=== PATIENT | female | born 1950 | race Caucasian/White ===

== ENCOUNTER 2018-05-14 16:17 | Emergency (ER) | payer MEDICARE, BC ==
[2018-05-14 16:44] VITALS: BP 143/74
[2018-05-14] MEDS ORDERED: Sodium Chloride 0.9% 500 ML IV ONE (16:47)
[2018-05-14] MEDS ORDERED: Meclizine 12.5 MG Tab PO ONE (16:50)
--- NOTE | 2018-05-14 16:50 | EDM.PDOC ---
ED HPI GENERAL MEDICAL PROBLEM - General Chief Complaint: Neurological Problem Stated Complaint: [facility] Time Seen by Provider: 05/14/18 16:29 Source of Information: Reports: Patient, EMS History Limitations: Reports: No Limitations - History of Present Illness INITIAL COMMENTS - FREE TEXT/NARRATIVE: 67-year-old female arrives via [facility] ambulance service for evaluation treatment of dizziness. Patient reports that she was working on her computer when she had sudden onset of dizziness. She reports feeling nauseated and vomited one time. She is also complaining of some pain to her left shoulder and the left side of her neck. Reports his pain as a 2 out of 10. Denies any chest pain or shortness of breath. Upon arrival in the ER patient is very shaky. The patient and her are not concerned by this. Reportedly she gets shaky when her protein levels are low. She frequently takes protein shakes or this. Primary care provider is Dr. Platt. Onset: Today, Sudden Left Shoulder Pain Score (Numeric/FACES): 2 - Related Data Allergies Allergy/AdvReac Type Severity Reaction Status Date / Time No Known Allergies Allergy Verified 06/04/14 10:55 Home Meds: Home Meds Acetaminophen/HYDROcodone [HYDROcodone-Acetaminophen 5-500] 1 tab PO ASDIRECTED PRN 06/04/14 [History] C0-Q-10 100 mg PO DAILY 06/04/14 [History] Lansoprazole [Prevacid] 1 tab PO DAILY 06/04/14 [History] Levothyroxine [Synthroid] 1 tab PO DAILY 06/04/14 [History] Losartan [Cozaar] 1 tab PO DAILY 06/04/14 [History] Nabumetone 500 mg PO BID 06/04/14 [History] Pravastatin [Pravachol] 1 tab PO DAILY 06/04/14 [History] amLODIPine [Norvasc] 1 tab PO DAILY 06/04/14 [History] Past Medical History Cardiovascular History: Reports: High Cholesterol, Hypertension Respiratory History: Reports: Asthma Gastrointestinal History: Reports: GERD Social & Family History - Tobacco Use Smoking Status *Q: Current Every Day Smoker Years of Tobacco use: 40 Packs/Tins Daily: 1 - Caffeine Use Caffeine Use: Reports: Tea - Recreational Drug Use Recreational Drug Use: No ED ROS GENERAL - Review of Systems Review Of Systems: See Below Constitutional: Reports: Weakness, Fatigue. Denies: Fever, Chills Respiratory: Denies: Shortness of Breath, Cough Cardiovascular: Denies: Chest Pain GI/Abdominal: Reports: Nausea, Vomiting. Denies: Abdominal Pain, Diarrhea, Hematochezia, Melena : Reports: No Symptoms Musculoskeletal: Reports: Neck Pain (left sided) Neurological: Reports: Dizziness, Tingling (chronic in the arms, no recent change). Denies: Headache, Numbness, Syncope ED EXAM, NEURO - Physical Exam Exam: See Below Exam Limited By: No Limitations General Appearance: Alert, WD/WN, No Apparent Distress, Thin Eye Exam: Bilateral Eye: EOMI, Normal Inspection Ears: Normal External Exam Nose: Normal Inspection Throat/Mouth: Normal Inspection, Normal Lips, Normal Voice, No Airway Compromise Head Exam: Atraumatic, Normocephalic Neck: Normal Inspection, Supple, Non-Tender, Full Range of Motion. No: Carotid Bruit Respiratory/Chest: No Respiratory Distress, Lungs Clear, Normal Breath Sounds Cardiovascular: Normal Peripheral Pulses, Regular Rate, Rhythm, No Murmur GI/Abdominal: Normal Bowel Sounds, Soft, Non-Tender Neurological: Alert, Normal Mood/Affect, Normal Dorsiflexion, CN II-XII Intact, Normal Plantar Flexion, Other (normal heel to gibson testing, normal finger to nose testing, physician coding specialist strength, dorsiflexion and plantarflexion are 5/5 bilaterally , no pronator drift, no lower extremity drift, no facial droop, no slurred speech) Psychiatric: Normal Affect, Normal Mood Skin Exam: Warm, Dry, Normal Color EKG INTERPRETATION EKG Date: 05/14/18 Time: 17:41 Rhythm: NSR Rate (Beats/Min): 73 [place]: Normal P-Wave: Present QRS: Normal ST-T: Normal QT: Normal EKG Interpretation Comments: NSR at 73 bpm. No acute ischemic changes . Reviewed by myself and Dr. Bradley. Course - Vital Signs Last Recorded V/S: Last Vital Signs Temp 97.8 F 05/14/18 16:42 Pulse 78 05/14/18 16:42 Resp 20 05/14/18 16:42 BP 143/74 H 05/14/18 16:42 Pulse Ox 97 05/14/18 16:42 Orthostatic Blood Pressure [ 118/76 Standing] Orthostatic Blood Pressure [ 127/75 Supine] - Orders/Labs/Meds Labs: Laboratory Tests 05/14/18 05/14/18 05/14/18 Range/Units 17:03 17:05 17:05 WBC 10.70 H (3.98-10.04) K/mm3 RBC 4.80 (3.98-5.22) M/mm3 Hgb 14.6 (11.2-15.7) gm/L Hct 42.7 (34.1-44.9) % MCV 89.0 (79.4-94.8) fl MCH 30.4 (25.6-32.2) pg MCHC 34.2 (32.2-35.5) g/dl RDW Std Deviation 44.0 (36.4-46.3) fL Plt Count 289 (182-369) K/mm3 MPV 8.9 L (9.4-12.3) fl Neutrophils % (Manual) 73 H (40-60) % Band Neutrophils % 0 (0-10) % Lymphocytes % (Manual) 18 L (20-40) % Atypical Lymphs % 0 % Monocytes % (Manual) 7 (2-10) % Eosinophils % (Manual) 2 (0.7-5.8) % Basophils % (Manual) 0 L (0.1-1.2) Platelet Estimate Adequate RBC Morph Comment Normal Sodium 145 (136-145) mEq/L Potassium 4.3 (3.5-5.1) mEq/L Chloride 105 (98-107) mEq/L Carbon Dioxide 32 (21-32) mEq/L Anion Gap 12.3 (5-15) BUN 19 H (7-18) mg/dL Creatinine 0.9 (0.55-1.02) mg/dL Est Cr Clr Drug Dosing 46.40 mL/min Estimated GFR (MDRD) > 60 (>60) mL/min BUN/Creatinine Ratio 21.1 H (14-18) Glucose 86 (80-115) mg/dL POC Glucose 71 L (80-115) mg/dL Calcium 9.6 (8.5-10.1) mg/dL Magnesium 1.8 (1.8-2.4) mg/dl Total Bilirubin 0.3 (0.2-1.0) mg/dL AST 26 (15-37) U/L ALT 27 (14-59) U/L Alkaline Phosphatase 94 (46-116) U/L Troponin I < 0.017 (0.00-0.056) ng/mL Total Protein 7.3 (6.4-8.2) g/dl Albumin 3.9 (3.4-5.0) g/dl Globulin 3.4 gm/dL Albumin/Globulin Ratio 1.2 (1-2) Free T4 1.54 H (0.76-1.46) ng/dL TSH 3rd Generation 4.037 H (0.358-3.74) uIU/mL Urine Color (Yellow) Urine Appearance (Clear) Urine pH (5.0-8.0) Ur Specific [place] (1.005-1.030) Urine Protein (Negative) Urine Glucose (UA) (Negative) Urine Ketones (Negative) Urine Occult Blood (Negative) Urine Nitrite (Negative) Urine Bilirubin (Negative) Urine Urobilinogen (0.2-1.0) Ur Leukocyte Esterase (Negative) Urine RBC (0-5) /hpf Urine WBC (0-5) /hpf Ur Epithelial Cells (0-5) /hpf Amorphous Sediment (NOT SEEN) /hpf Urine Bacteria (FEW) /hpf Urine Mucus (FEW) /hpf 05/14/18 05/14/18 Range/Units 17:13 17:56 WBC (3.98-10.04) K/mm3 RBC (3.98-5.22) M/mm3 Hgb (11.2-15.7) gm/L Hct (34.1-44.9) % MCV (79.4-94.8) fl MCH (25.6-32.2) pg MCHC (32.2-35.5) g/dl RDW Std Deviation (36.4-46.3) fL Plt Count (182-369) K/mm3 MPV (9.4-12.3) fl Neutrophils % (Manual) (40-60) % Band Neutrophils % (0-10) % Lymphocytes % (Manual) (20-40) % Atypical Lymphs % % Monocytes % (Manual) (2-10) % Eosinophils % (Manual) (0.7-5.8) % Basophils % (Manual) (0.1-1.2) Platelet Estimate RBC Morph Comment Sodium (136-145) mEq/L Potassium (3.5-5.1) mEq/L Chloride (98-107) mEq/L Carbon Dioxide (21-32) mEq/L Anion Gap (5-15) BUN (7-18) mg/dL Creatinine (0.55-1.02) mg/dL Est Cr Clr Drug Dosing mL/min Estimated GFR (MDRD) (>60) mL/min BUN/Creatinine Ratio (14-18) Glucose (80-115) mg/dL POC Glucose 101 (80-115) mg/dL Calcium (8.5-10.1) mg/dL Magnesium (1.8-2.4) mg/dl Total Bilirubin (0.2-1.0) mg/dL AST (15-37) U/L ALT (14-59) U/L Alkaline Phosphatase (46-116) U/L Troponin I (0.00-0.056) ng/mL Total Protein (6.4-8.2) g/dl Albumin (3.4-5.0) g/dl Globulin gm/dL Albumin/Globulin Ratio (1-2) Free T4 (0.76-1.46) ng/dL TSH 3rd Generation (0.358-3.74) uIU/mL Urine Color Yellow (Yellow) Urine Appearance Clear (Clear) Urine pH 6.5 (5.0-8.0) Ur Specific [place] > or = 1.030 (1.005-1.030) Urine Protein 2+ H (Negative) Urine Glucose (UA) Negative (Negative) Urine Ketones Negative (Negative) Urine Occult Blood 1+ H (Negative) Urine Nitrite Negative (Negative) Urine Bilirubin Negative (Negative) Urine Urobilinogen 0.2 (0.2-1.0) Ur Leukocyte Esterase Negative (Negative) Urine RBC 10-20 H (0-5) /hpf Urine WBC 0-5 (0-5) /hpf Ur Epithelial Cells 0-5 (0-5) /hpf Amorphous Sediment Moderate H (NOT SEEN) /hpf Urine Bacteria Few (FEW) /hpf Urine Mucus Few (FEW) /hpf Meds: Medications Discontinued Medications Generic Name Dose Route Start Last Admin Trade Name Freq PRN Reason Stop Dose Admin Sodium Chloride 500 mls @ 999 mls/hr 05/14/18 16:47 05/14/18 17:18 Normal Saline IV 05/14/18 17:17 999 mls/hr ONETIME ONE Administration Meclizine HCl 12.5 mg 05/14/18 16:50 05/14/18 17:17 Antivert PO 05/14/18 16:51 12.5 mg ONETIME ONE Administration - Radiology Interpretation Free Text/Narrative:: Head CT Technique: Multiple axial sections through the brain were obtained. Intravenous contrast was not utilized. Comparison: No prior intracranial imaging. Findings: Ventricles along with basal cisterns and sulci over convexities are within normal limits for the patient's age. No abnormal parenchymal densities are seen. No evidence of intracranial hemorrhage. No midline shift or mass effect is seen. Bone window settings were reviewed which shows the visualized sinuses to appear clear. Mild atherosclerotic calcification is seen within the carotid siphon. No acute calvarial abnormality is seen. Impression: 1. Minimal senescent change. Nothing acute is seen on noncontrast head CT exam. 1 view chest xray shows no acute intrathroacic process. - Re-Assessments/Exams Free Text/Narrative Re-Assessment/Exam: 05/14/18 19:55 Patient's blood sugar on scene was in the 90s. She was in the 70s upon arrival in the ER. She drank orange juice and her symptoms improved greatly with the orange juice and fluids. I feel she is likely getting hypoglycemic. Does not sound that she ate much today. I suspect her "low protein levels" are actually episodes of hypoglycemia which she is treating with protein shakes. I have reviewed the labs, ekg and imaging with the patient. Suggest close follow-up in the clinic. She reports she is feeling much better and would like to go home. Discharge instructions as documented. Departure - Departure Time of Disposition: 19:55 Disposition: Home, Self-Care 01 Condition: Fair Clinical Impression: Dehydration, Hypoglycemia - Discharge Information *PRESCRIPTION DRUG MONITORING PROGRAM REVIEWED*: No *COPY OF PRESCRIPTION DRUG MONITORING REPORT IN PATIENT GINA: No Instructions: Dehydration, Adult, [id number] Referrals: Kristine Platt MD [Primary Care Provider] - Forms: ED Department Discharge Additional Instructions: Follow-up with your primary care provider next week for recheck of your symptoms. Recommend eating small frequent meals to prevent your blood sugar from dropping too low. A few start to feel lightheaded or shaky recommend taking some orange juice or sucking on hard candy like a lifesaver. Make sure you are drinking plenty of fluids. Please return to the ER if your symptoms change or worsen.
--- NOTE | 2018-05-14 17:12 | CT ---
Head CT Technique: Multiple axial sections through the brain were obtained. Intravenous contrast was not utilized. Comparison: No prior intracranial imaging. Findings: Ventricles along with basal cisterns and sulci over convexities are within normal limits for the patient's age. No abnormal parenchymal densities are seen. No evidence of intracranial hemorrhage. No midline shift or mass effect is seen. Bone window settings were reviewed which shows the visualized sinuses to appear clear. Mild atherosclerotic calcification is seen within the carotid siphon. No acute calvarial abnormality is seen. Impression: 1. Minimal senescent change. Nothing acute is seen on noncontrast head CT exam. Diagnostic code #2
--- NOTE | 2018-05-15 14:32 | CR ---
Chest: Portable view of the chest was obtained. Comparison: Prior chest x-ray of 06/04/14. Heart size is normal for portable technique. Tortuous thoracic aorta is seen. Lungs are clear and hyperinflated. Bony structures are grossly intact. Impression: 1. Emphysematous change. Nothing acute is appreciated on portable chest x-ray. Diagnostic code #2
== END 2018-05-14 20:08 | disposition home or self-care (01) ==
LOC: SUPCPDRO 16:17 → JD.ED 16:17
DX: E16.2 Hypoglycemia, unspecified (principal); E86.0 Dehydration; I10 Essential (primary) hypertension; F17.210 Nicotine dependence, cigarettes, uncomplicated
CPT/HCPCS: 36415; 70450; 71045; 80053; 81001; 82962; 83735; 84439; 84443; 84484; 85007; 85027; 87804; 93005; 96360; 99285; A9270; J7040

== ENCOUNTER 2019-02-12 15:34 | Emergency (ER) | payer MEDICARE, BC ==
[2019-02-12 15:42] VITALS: BP 142/67; PULSE 74
--- NOTE | 2019-02-12 16:04 | EDM.PDOC ---
ED HPI GENERAL MEDICAL PROBLEM - General Chief Complaint: Neurological Problem Stated Complaint: [facility] Time Seen by Provider: 02/12/19 15:45 - History of Present Illness INITIAL COMMENTS - FREE TEXT/NARRATIVE: 68-year-old female comes emergency room via EMS with some transient chest discomfort and severe dizziness. Patient was talking on the phone and developed pretty significant dizziness she had some brief possible palpitations maybe chest discomfort the patient has a hard time describing this the palpitations and discomfort resolved quickly and then she developed some discomfort underneath the left side of her diaphragm. The patient is significantly dizzy she cannot identify a trigger or looking a certain direction that makes it worse. The patient is been worked up for this in the past she was thought to have vertigo and and has done vertigo exercises in physical therapy that helped out significantly and she really hasn't had an episode like this since finishing that therapy. She was seen here in May and thought maybe to have hypoglycemic component. Her blood sugar by EMS was 132 and may been stable here in the emergency department. - Related Data Allergies Allergy/AdvReac Type Severity Reaction Status Date / Time No Known Allergies Allergy Verified 06/04/14 10:55 Home Meds: Home Meds Levothyroxine [Synthroid] 50 mcg PO DAILY 06/04/14 [History] Losartan [Cozaar] 25 mg PO DAILY 06/04/14 [History] Pravastatin [Pravachol] 80 mg PO DAILY 06/04/14 [History] amLODIPine [Norvasc] 5 mg PO DAILY 06/04/14 [History] Albuterol [Ventolin HFA] 1 - 2 puff INH Q4H PRN 02/12/19 [History] Aspirin [Halfprin] 81 mg PO DAILY 02/12/19 [History] Cholecalciferol (Vitamin D3) [Vitamin D] 5,000 unit PO DAILY 02/12/19 [History] Teriparatide [Forteo] 1 injection INJECT DAILY 02/12/19 [History] Ubidecarenone [Co Q-10] 200 mg PO DAILY 02/12/19 [History] Past Medical History Cardiovascular History: Reports: High Cholesterol, Hypertension Respiratory History: Reports: Asthma Gastrointestinal History: Reports: GERD Endocrine/Metabolic History: Reports: Hypothyroidism - Past Surgical History Female Surgical History: Reports: Hysterectomy Social & Family History - Tobacco Use Smoking Status *Q: Current Every Day Smoker Years of Tobacco use: 50 Packs/Tins Daily: 1 - Caffeine Use Caffeine Use: Reports: Tea - Recreational Drug Use Recreational Drug Use: No ED ROS GENERAL - Review of Systems Review Of Systems: See Below Constitutional: Reports: No Symptoms HEENT: Reports: No Symptoms Respiratory: Reports: No Symptoms Cardiovascular: Reports: Palpitations, Other (Vague chest discomfort) Endocrine: Reports: No Symptoms GI/Abdominal: Reports: Abdominal Pain (Left upper quadrant), Nausea. Denies: Constipation, Diarrhea, Vomiting : Reports: No Symptoms Musculoskeletal: Reports: No Symptoms Skin: Reports: No Symptoms Neurological: Reports: Dizziness Psychiatric: Reports: No Symptoms Hematologic/Lymphatic: Reports: No Symptoms ED EXAM, GENERAL - Physical Exam Exam: See Below Exam Limited By: Other (Early on evaluation the patient did not want to do much but she was able to participate for complete neurologic examination) General Appearance: Mild Distress (She is a little apprehensive about doing much but did cooperate) Eye Exam: Bilateral Eye: EOMI, Normal Inspection, PERRL Ears: Normal External Exam, Normal Canal, Hearing Grossly Normal, Normal TMs Nose: Normal Inspection, Normal Mucosa, No Blood Throat/Mouth: Normal Inspection, Normal Lips, Normal Teeth, Normal Gums, Normal Oropharynx, Normal Voice, No Airway Compromise Head: Atraumatic, Normocephalic Neck: Normal Inspection, Supple, Non-Tender, Full Range of Motion. No: Lymphadenopathy (L), Lymphadenopathy (R) Respiratory/Chest: Lungs Clear, Normal Breath Sounds, No Accessory Muscle Use Cardiovascular: Regular Rate, Rhythm, No Edema, No Murmur GI/Abdominal: Normal Bowel Sounds, Soft, Non-Tender Back Exam: Normal Inspection. No: CVA Tenderness (L), CVA Tenderness (R) Extremities: Normal Inspection, No Pedal Edema Neurological: Alert, Oriented, Normal Reflexes, No Motor/Sensory Deficits, Other Psychiatric: Normal Affect, Normal Mood Skin Exam: Warm, Dry, Intact Course - Vital Signs Last Recorded V/S: Last Vital Signs Temp 36.2 C 02/12/19 15:40 Pulse 74 02/12/19 15:40 Resp 25 H 02/12/19 15:40 BP 142/67 H 02/12/19 15:40 Pulse Ox 97 02/12/19 15:40 - Orders/Labs/Meds Orders: Active Orders 24 hr Category Date Time Status EKG Documentation Completion [RC] STAT Care 02/12/19 16:02 Active Chest 1V Frontal [CR] Stat Exams 02/12/19 16:01 Taken Labs: Laboratory Tests 02/12/19 02/12/19 02/12/19 Range/Units 16:13 16:13 16:13 WBC 12.95 H (3.98-10.04) K/mm3 RBC 4.38 (3.98-5.22) M/mm3 Hgb 13.4 (11.2-15.7) gm/dl Hct 37.9 (34.1-44.9) % MCV 86.5 (79.4-94.8) fl MCH 30.6 (25.6-32.2) pg MCHC 35.4 (32.2-35.5) g/dl RDW Std Deviation 44.3 (36.4-46.3) fL Plt Count 279 (182-369) K/mm3 MPV 9.3 L (9.4-12.3) fl Neutrophils % (Manual) 66 H (40-60) % Band Neutrophils % 4 (0-10) % Lymphocytes % (Manual) 18 L (20-40) % Atypical Lymphs % 0 % Monocytes % (Manual) 9 (2-10) % Eosinophils % (Manual) 1 (0.7-5.8) % Basophils % (Manual) 2 H (0.1-1.2) Toxic Granulation 1+ slight Platelet Estimate Adequate Plt Morphology Comment Normal RBC Morph Comment Normal PT 10.3 (9.7-12.0) SECONDS INR 0.94 APTT (22-31) SECONDS Sodium 140 (136-145) mEq/L Potassium 3.7 (3.5-5.1) mEq/L Chloride 105 (98-107) mEq/L Carbon Dioxide 30 (21-32) mEq/L Anion Gap 8.7 (5-15) BUN 16 (7-18) mg/dL Creatinine 0.8 (0.55-1.02) mg/dL Est Cr Clr Drug Dosing 43.00 mL/min Estimated GFR (MDRD) > 60 (>60) mL/min BUN/Creatinine Ratio 20.0 H (14-18) Glucose 112 (80-115) mg/dL Calcium 9.2 (8.5-10.1) mg/dL Total Bilirubin 0.2 (0.2-1.0) mg/dL AST 33 (15-37) U/L ALT 22 (14-59) U/L Alkaline Phosphatase 85 (46-116) U/L Troponin I < 0.017 (0.00-0.056) ng/mL Total Protein 6.5 (6.4-8.2) g/dl Albumin 3.4 (3.4-5.0) g/dl Globulin 3.1 gm/dL Albumin/Globulin Ratio 1.1 (1-2) 02/12/19 02/12/19 Range/Units 16:13 18:15 WBC (3.98-10.04) K/mm3 RBC (3.98-5.22) M/mm3 Hgb (11.2-15.7) gm/dl Hct (34.1-44.9) % MCV (79.4-94.8) fl MCH (25.6-32.2) pg MCHC (32.2-35.5) g/dl RDW Std Deviation (36.4-46.3) fL Plt Count (182-369) K/mm3 MPV (9.4-12.3) fl Neutrophils % (Manual) (40-60) % Band Neutrophils % (0-10) % Lymphocytes % (Manual) (20-40) % Atypical Lymphs % % Monocytes % (Manual) (2-10) % Eosinophils % (Manual) (0.7-5.8) % Basophils % (Manual) (0.1-1.2) Toxic Granulation Platelet Estimate Plt Morphology Comment RBC Morph Comment PT (9.7-12.0) SECONDS INR APTT 23 (22-31) SECONDS Sodium (136-145) mEq/L Potassium (3.5-5.1) mEq/L Chloride (98-107) mEq/L Carbon Dioxide (21-32) mEq/L Anion Gap (5-15) BUN (7-18) mg/dL Creatinine (0.55-1.02) mg/dL Est Cr Clr Drug Dosing mL/min Estimated GFR (MDRD) (>60) mL/min BUN/Creatinine Ratio (14-18) Glucose (80-115) mg/dL Calcium (8.5-10.1) mg/dL Total Bilirubin (0.2-1.0) mg/dL AST (15-37) U/L ALT (14-59) U/L Alkaline Phosphatase (46-116) U/L Troponin I < 0.017 (0.00-0.056) ng/mL Total Protein (6.4-8.2) g/dl Albumin (3.4-5.0) g/dl Globulin gm/dL Albumin/Globulin Ratio (1-2) - Re-Assessments/Exams Free Text/Narrative Re-Assessment/Exam: 02/12/19 19:41 Patient felt much better without any treatment after arrival. Labs were reviewed unremarkable troponin negative second troponin was obtained which was also negative. EKG shows no acute changes chest x-ray shows flattening of the diaphragm consistent with long-term smoking patient was advised to quit smoking. Clearly I am not sure what caused her symptoms it did not act like vertigo with spontaneous resolution the onset was unusual the patient usually knows when she is given a have a bout of dizziness and she was aware that this was coming on when she was talking on the phone and his dizziness escalated over some time it was not sudden onset. She had some nausea with the dizziness. Departure - Departure Time of Disposition: 19:28 Disposition: Home, Self-Care 01 Clinical Impression: Dizziness, Abdominal discomfort in left upper quadrant - Discharge Information Instructions: Dizziness Referrals: Kristine Platt MD [Primary Care Provider] - Forms: ED Department Discharge Additional Instructions: Return to emergency room if any questions problems or any other concerns. Follow-up in the clinic this next week for recheck - My Orders Last 24 Hours: My Active Orders 02/12/19 16:01 Chest 1V Frontal [CR] Stat 02/12/19 16:02 EKG Documentation Completion [RC] STAT - Assessment/Plan Last 24 Hours: My Active Orders 02/12/19 16:01 Chest 1V Frontal [CR] Stat 02/12/19 16:02 EKG Documentation Completion [RC] STAT
--- NOTE | 2019-02-12 16:56 | CT ---
Head CT Technique: Multiple axial sections through the brain were obtained. Intravenous contrast was not utilized. Comparison: Prior head CT study of 05/14/18. Findings: Ventricles along with basal cisterns and sulci over the convexities are mildly prominent. No abnormal parenchymal densities are seen. No evidence of intracranial hemorrhage. No midline shift or mass effect is seen. Bone window settings were reviewed which shows visualized paranasal sinuses to appear clear. Visualized mastoid sinuses are also clear. No acute calvarial abnormality is seen. Impression: 1. Nothing acute is appreciated on noncontrast head CT exam. Diagnostic code #1
--- NOTE | 2019-02-13 12:00 | CR ---
Chest: Portable view of the chest was obtained. Comparison: Prior chest x-ray of 05/14/18. Heart size and mediastinum are within normal limits for portable technique. Lungs are clear but hyperinflated. Bony structures show scoliosis within the spine. Osteopenia is also noted. Impression: 1. Probable emphysematous change. Nothing acute is otherwise seen on portable chest x-ray. Diagnostic code #2
== END 2019-02-12 19:47 | disposition home or self-care (01) ==
LOC: JD.ED 15:34 → SUPCPDRO 15:34 → JD.ED 19:47
DX: R42 Dizziness and giddiness (principal); R10.12 Left upper quadrant pain; E78.00 Pure hypercholesterolemia, unspecified; I10 Essential (primary) hypertension; J45.909 Unspecified asthma, uncomplicated; E03.9 Hypothyroidism, unspecified; F17.210 Nicotine dependence, cigarettes, uncomplicated; Z79.890 Hormone replacement therapy; Z79.899 Other long term (current) drug therapy
CPT/HCPCS: 36415; 70450; 70450-26; 71045; 71045-26; 80053; 84484; 85007; 85027; 85610; 85730; 93005; 99285-25

== ENCOUNTER 2019-05-14 06:04 | Inpatient (IN) | payer MEDICARE, BC ==
[2019-05-14] MEDS ORDERED: Albuterol/Ipratropium 3.0-0.5 MG/3 ML Neb Soln NEB ONE ×2 (06:30→09:03)
[2019-05-14] MEDS ORDERED: methylPREDNISolone Sodium Succinate 125 MG/2 ML SDV IVPUSH ONE (06:35)
--- NOTE | 2019-05-14 08:54 | EDM.PDOC ---
ED HPI GENERAL MEDICAL PROBLEM - General Chief Complaint: Respiratory Problem Stated Complaint: SOB/FEVER Time Seen by Provider: 05/14/19 07:08 Source of Information: Reports: Patient History Limitations: Reports: No Limitations - History of Present Illness INITIAL COMMENTS - FREE TEXT/NARRATIVE: The patient presents with shortness of breath. She said this has been going on for a few days. She has a dry cough with it. She has no fever or chills. She has no chest pain. She has no abdominal pain, nausea or vomiting. She does smoke. Her oxygen saturations were low at 50% when she came back. She was put on a nonrebreather and she quickly came up and now she is down to a nasal cannula. She does have a history of COPD. She has no swelling or pain in her legs. Onset: Gradual Duration: Day(s): Severity: Moderate Improves with: Reports: None Worsens with: Reports: None Associated Symptoms: Reports: Cough, Shortness of Breath. Denies: Chest Pain, Fever/Chills, Headaches, Nausea/Vomiting Chest Pain Score (Numeric/FACES): 4 - Related Data Allergies Allergy/AdvReac Type Severity Reaction Status Date / Time No Known Allergies Allergy Verified 05/14/19 06:26 Home Meds: Home Meds Levothyroxine [Synthroid] 50 mcg PO DAILY 06/04/14 [History] Losartan [Cozaar] 25 mg PO DAILY 06/04/14 [History] Pravastatin [Pravachol] 80 mg PO DAILY 06/04/14 [History] amLODIPine [Norvasc] 5 mg PO DAILY 06/04/14 [History] Albuterol [Ventolin HFA] 1 - 2 puff INH Q4H PRN 02/12/19 [History] Aspirin [Halfprin] 81 mg PO DAILY 02/12/19 [History] Cholecalciferol (Vitamin D3) [Vitamin D] 5,000 unit PO DAILY 02/12/19 [History] Teriparatide [Forteo] 1 injection INJECT DAILY 02/12/19 [History] Ubidecarenone [Co Q-10] 200 mg PO DAILY 02/12/19 [History] Omeprazole 20 mg PO DAILY 05/14/19 [History] Tiotropium Br/Olodaterol HCl [Stiolto Respimat Inhal [place]] 2 puff INH DAILY 08/28 [History] Past Medical History Cardiovascular History: Reports: High Cholesterol, Hypertension Respiratory History: Reports: Asthma Gastrointestinal History: Reports: GERD Neurological History: Reports: Seizure Other Neuro History: past seen in the ED twice for Endocrine/Metabolic History: Reports: Hypothyroidism Oncologic (Cancer) History: Reports: Other (See Below) Other Oncologic History: past Cancer to her face that was treated with creams - Past Surgical History Female Surgical History: Reports: Hysterectomy Social & Family History - Tobacco Use Smoking Status *Q: Current Every Day Smoker Years of Tobacco use: 40 Packs/Tins Daily: 0.5 - Caffeine Use Caffeine Use: Reports: None - Recreational Drug Use Recreational Drug Use: No ED ROS GENERAL - Review of Systems Review Of Systems: See Below Constitutional: Reports: No Symptoms HEENT: Reports: No Symptoms Respiratory: Reports: Shortness of Breath, Cough Cardiovascular: Reports: No Symptoms Endocrine: Reports: No Symptoms GI/Abdominal: Reports: No Symptoms : Reports: No Symptoms Musculoskeletal: Reports: No Symptoms ED EXAM, GENERAL - Physical Exam Exam: See Below Exam Limited By: No Limitations General Appearance: Alert, No Apparent Distress Ears: Normal External Exam Nose: Normal Inspection Head: Atraumatic, Normocephalic Neck: Normal Inspection Respiratory/Chest: No Respiratory Distress, Decreased Breath Sounds, Wheezing Cardiovascular: Regular Rate, Rhythm, No Edema, No Murmur GI/Abdominal: Soft, Non-Tender, No Organomegaly, No Mass Back Exam: Normal Inspection Extremities: Normal Inspection Course - Vital Signs Last Recorded V/S: Last Vital Signs Temp 99.0 F 05/14/19 06:18 Pulse 108 H 05/14/19 06:18 Resp 28 H 05/14/19 06:18 BP 172/72 H 05/14/19 06:18 Pulse Ox 80 L 05/14/19 09:13 - Orders/Labs/Meds Orders: Active Orders 24 hr Category Date Time Status EKG Documentation Completion [RC] STAT Care 05/14/19 06:35 Active Oxygen Therapy [RC] ASDIRECTED Care 05/14/19 07:09 Active RT Aerosol Therapy [RC] ASDIRECTED Care 05/14/19 06:32 Active RT Aerosol Therapy [RC] ASDIRECTED Care 05/14/19 09:03 Active Chest 1V Frontal [CR] Stat Exams 05/14/19 06:33 Taken Labs: Laboratory Tests 05/14/19 05/14/19 05/14/19 Range/Units 06:20 06:20 06:35 WBC 11.97 H (3.98-10.04) K/mm3 RBC 4.86 (3.98-5.22) M/mm3 Hgb 14.4 (11.2-15.7) gm/dl Hct 41.9 (34.1-44.9) % MCV 86.2 (79.4-94.8) fl MCH 29.6 (25.6-32.2) pg MCHC 34.4 (32.2-35.5) g/dl RDW Std Deviation 44.0 (36.4-46.3) fL Plt Count 281 (182-369) K/mm3 MPV 9.2 L (9.4-12.3) fl Neutrophils % (Manual) 68 H (40-60) % Band Neutrophils % 0 (0-10) % Lymphocytes % (Manual) 26 (20-40) % Atypical Lymphs % 0 % Monocytes % (Manual) 6 (2-10) % Eosinophils % (Manual) 0 L (0.7-5.8) % Basophils % (Manual) 0 L (0.1-1.2) Platelet Estimate Adequate RBC Morph Comment Normal Puncture Site Rt radial ABG pH 7.36 (7.35-7.45) ABG pCO2 51.3 H (35.0-45.0) mmHg ABG pO2 80.0 (80.0-100.0) mmHg ABG HCO3 28.1 H (22.0-26.0) meq/L ABG O2 Saturation 92.3 L (96.0-97.0) % ABG Base Excess 2.3 H (-2-2.0) A-a Gradient 57 mmHg O2 Delivery Device Nasal cannula Oxygen Flow Rate 2.0 FiO2 28.00 (21.00-100.00) % Sodium 136 (136-145) mEq/L Potassium 3.4 L (3.5-5.1) mEq/L Chloride 96 L (98-107) mEq/L Carbon Dioxide 27 (21-32) mEq/L Anion Gap 16.4 H (5-15) BUN 18 (7-18) mg/dL Creatinine 1.0 (0.55-1.02) mg/dL Est Cr Clr Drug Dosing 33.23 mL/min Estimated GFR (MDRD) 55 (>60) mL/min BUN/Creatinine Ratio 18.0 (14-18) Glucose 198 H (80-115) mg/dL Calcium 8.9 (8.5-10.1) mg/dL Total Bilirubin 0.3 (0.2-1.0) mg/dL AST 39 H (15-37) U/L ALT 31 (14-59) U/L Alkaline Phosphatase 102 (46-116) U/L Troponin I < 0.017 (0.00-0.056) ng/mL Total Protein 7.6 (6.4-8.2) g/dl Albumin 3.5 (3.4-5.0) g/dl Globulin 4.1 gm/dL Albumin/Globulin Ratio 0.9 L (1-2) Meds: Medications Discontinued Medications Generic Name Dose Route Start Last Admin Trade Name Freq PRN Reason Stop Dose Admin Albuterol/Ipratropium 3 ml 05/14/19 06:30 05/14/19 06:48 Duoneb 3.0-0.5 Mg/3 Ml NEB 05/14/19 06:31 3 ml ONETIME ONE Administration Albuterol/Ipratropium 3 ml 05/14/19 09:03 05/14/19 09:13 Duoneb 3.0-0.5 Mg/3 Ml NEB 05/14/19 09:04 3 ml ONETIME ONE Administration Methylprednisolone Sodium Succinate 125 mg 05/14/19 06:35 05/14/19 07:09 Solu-Medrol IVPUSH 05/14/19 06:36 125 mg ONETIME ONE Administration - Re-Assessments/Exams Free Text/Narrative Re-Assessment/Exam: 05/14/19 08:51 I ordered oxygen, CXR, IV saline lock, duoneb, solu-medrol 125mg IV, and labs. Her WBC was elevated at 11.97. Her pH is normal. Her pCO2 is elevated at 51.3. Her pO2 is normal at 80. Her anion gap is elevated at 16.4. Her glucose is elevated at 198. Her AST is 39. Her troponin is negative. Her CXR shows COPD but no infiltrates. 05/14/19 09:53 I took her off her oxygen and she quickly went down to 80%. I ordered another treatment and I feel she needs to be admitted. Her influenza is negative. I called Dr Martínez and he agreed to the admission. She has never been formally diagnosed with COPD but I feel she has COPD. Departure - Departure Time of Disposition: 09:55 Disposition: Admitted As Inpatient 67 Condition: Poor Clinical Impression: COPD exacerbation, Hypoxia - Discharge Information Referrals: Nuno Phillips MD [Primary Care Provider] - Forms: ED Department Discharge Sepsis Event Note - Evaluation Sepsis Screening Result: No Definite Risk - Focused Exam Vital Signs: Vital Signs Temp Pulse Resp BP Pulse Ox Pulse Ox Pulse Ox 05/14/19 09:13 80 L 05/14/19 06:32 96 05/14/19 06:18 99.0 F 108 H 28 H 172/72 H 96 Date Exam was Performed: 05/14/19 Time Exam was Performed: 09:53 - My Orders Last 24 Hours: My Active Orders 05/14/19 09:03 RT Aerosol Therapy [RC] ASDIRECTED - Assessment/Plan Last 24 Hours: My Active Orders 05/14/19 09:03 RT Aerosol Therapy [RC] ASDIRECTED
--- NOTE | 2019-05-14 10:55 | PCM.HP.2 ---
H&P History of Present Illness - General Date of Service: 05/14/19 Admit Problem/Dx: Admission Diagnosis/Problem Admission Diagnosis/Problem COPD, Moderate chronic obstructive pulmonary disease Source of Information: Patient, Family, Old Records, Provider, RN Notes Reviewed History Limitations: Reports: No Limitations - History of Present Illness Initial Comments - Free Text/Narative: This is a 68 yo elderly white female with past medical hx/o HTN, HLD, Pulmonary HTN, Mild-Moderate Tricuspid Regurgitation, COPD/Asthma, GERD, Seizure Disorder , Hypothyroidism, Hx/o Thyroid Nodules, Vit D Deficiency and Osteoporosis who presents to ED with complaints of increasing shortness of breath that has been going on for a few days now. Her chief complaint is associated with dry cough. She denies having fever or chills. No report of chest pain or GI issues. She has inhalers for maintenance medications. She is not on home supplemental O2. She still smokes 1/2 pack a day for 20 years. Her initial work up in ED shows a CBC remarkable for WBC of 11.97, MVC of 9.2, and Neutrophils of 68%. Her ABG shows a pH of 7.36, pCO2 of 51.3, pO2 of 80, hCO3 of 28.1, and O2 sat of 92.3% on 2L NC. Her chemistry is significant for K of 3.4, Cl of 96, AG of 16.4, BS of 198, AST of 39 and CRP of 1.3. Her chest x- ray shows emphysematous change. Patient received initial treatment in ED prior to coming in for further management of COPD exacerbation. Chest Pain Score (Numeric/FACES): 4 - Related Data Allergies/Adverse Reactions: Allergies Allergy/AdvReac Type Severity Reaction Status Date / Time No Known Allergies Allergy Verified 05/14/19 06:26 Home Medications: Home Meds Levothyroxine [Synthroid] 50 mcg PO DAILY 06/04/14 [History] Losartan [Cozaar] 25 mg PO DAILY 06/04/14 [History] Pravastatin [Pravachol] 80 mg PO DAILY 06/04/14 [History] amLODIPine [Norvasc] 5 mg PO DAILY 06/04/14 [History] Albuterol [Ventolin HFA] 1 - 2 puff INH Q4H PRN 02/12/19 [History] Aspirin [Halfprin] 81 mg PO DAILY PRN 02/12/19 [History] Cholecalciferol (Vitamin D3) [Vitamin D] 5,000 unit PO DAILY 02/12/19 [History] Teriparatide [Forteo] 1 injection INJECT DAILY 02/12/19 [History] Ubidecarenone [Co Q-10] 200 mg PO DAILY 02/12/19 [History] Omeprazole 20 mg PO DAILY 05/14/19 [History] Tiotropium Br/Olodaterol HCl [Stiolto Respimat Inhal [place]] 2 puff INH DAILY 08/28 [History] Past Medical History Cardiovascular History: Reports: High Cholesterol, Hypertension Respiratory History: Reports: Asthma Gastrointestinal History: Reports: GERD Neurological History: Reports: Seizure Other Neuro History: past seen in the ED twice for Endocrine/Metabolic History: Reports: Hypothyroidism Oncologic (Cancer) History: Reports: Other (See Below) Other Oncologic History: past Cancer to her face that was treated with creams - Past Surgical History Female Surgical History: Reports: Hysterectomy Social & Family History - Tobacco Use Smoking Status *Q: Current Every Day Smoker Years of Tobacco use: 40 Packs/Tins Daily: 0.5 - Caffeine Use Caffeine Use: Reports: None - Recreational Drug Use Recreational Drug Use: No H&P Review of Systems - Review of Systems: Review Of Systems: See Below General: Reports: Fatigue. Denies: Fever, Chills HEENT: Reports: No Symptoms Pulmonary: Reports: Shortness of Breath, Wheezing, Cough. Denies: Pleuritic Chest Pain Cardiovascular: Denies: Chest Pain, Dyspnea on Exertion, Edema, Lightheadedness Gastrointestinal: Denies: Abdominal Pain, Nausea, Vomiting Genitourinary: Reports: No Symptoms Musculoskeletal: Reports: No Symptoms Skin: Denies: Cyanosis, Pallor, Diaphoresis, Rash, Erythema, Change in Color, Change in Hair/Nails Psychiatric: Denies: Confusion, Anxiety Neurological: Denies: Confusion, Numbness, Seizure, Trouble Speaking Hematologic/Lymphatic: Reports: No Symptoms Immunologic: Reports: No Symptoms Exam - Exam Exam: See Below - Vital Signs Vital Signs: Last Vital Signs Temp 37.2 C 05/14/19 06:18 Pulse 108 H 05/14/19 06:18 Resp 28 H 05/14/19 06:18 BP 172/72 H 05/14/19 06:18 Pulse Ox 80 L 05/14/19 09:13 Weight: 38.555 kg - Exam Quality Assessment: Supplemental Oxygen General: Alert, Oriented, Cooperative. No: Mild Distress HEENT: Conjunctiva Clear, EACs Clear, EOMI, Hearing Intact, Mucosa Moist & [place] , Nares Patent, Normal Nasal Septum, Posterior Pharynx Clear, Pupils Equal, Pupils Reactive, Other (no chest rectrations) Neck: Supple, Trachea Midline, +2 Carotid Pulse wo Bruit, Full Range of Motion. No: JVD Lungs: Normal Respiratory Effort, Decreased Breath Sounds, Wheezing Cardiovascular: Regular Rate, Regular Rhythm GI/Abdominal Exam: Normal Bowel Sounds, Soft, Non-Tender, No Organomegaly, No Distention, No Abnormal Bruit (Female) Exam: Deferred Rectal (Female) Exam: Deferred Back Exam: Normal Inspection, Decreased Range of Motion Extremities: Normal Inspection, Normal Range of Motion, Non-Tender, No Pedal Edema, Normal Capillary Refill Peripheral Pulses: 2+: Posterior Tibial (L), Posterior Tibial (R), Dorsalis Pedis (L), Dorsalis Pedis (R) Skin: Warm, Dry, Intact Skin Alteration Location (Drawings Not To Scale): 1 - Diffuse skin lesions with stuck on appearance Neuro Extensive - Mental Status: Oriented x3, Normal Cognition, Memory Intact Neuro Extensive - Motor, Sensory, Reflexes: CN II-XII Intact, Normal Gait Psychiatric: Alert, Normal Affect, Normal Mood - Patient Data Lab Results Last 24 hrs: Laboratory Results - last 24 hr 05/14/19 05/14/19 05/14/19 Range/Units 06:20 06:20 06:35 WBC 11.97 H (3.98-10.04) K/mm3 RBC 4.86 (3.98-5.22) M/mm3 Hgb 14.4 (11.2-15.7) gm/dl Hct 41.9 (34.1-44.9) % MCV 86.2 (79.4-94.8) fl MCH 29.6 (25.6-32.2) pg MCHC 34.4 (32.2-35.5) g/dl RDW Std Deviation 44.0 (36.4-46.3) fL Plt Count 281 (182-369) K/mm3 MPV 9.2 L (9.4-12.3) fl Neutrophils % (Manual) 68 H (40-60) % Band Neutrophils % 0 (0-10) % Lymphocytes % (Manual) 26 (20-40) % Atypical Lymphs % 0 % Monocytes % (Manual) 6 (2-10) % Eosinophils % (Manual) 0 L (0.7-5.8) % Basophils % (Manual) 0 L (0.1-1.2) Platelet Estimate Adequate RBC Morph Comment Normal Puncture Site Rt radial ABG pH 7.36 (7.35-7.45) ABG pCO2 51.3 H (35.0-45.0) mmHg ABG pO2 80.0 (80.0-100.0) mmHg ABG HCO3 28.1 H (22.0-26.0) meq/L ABG O2 Saturation 92.3 L (96.0-97.0) % ABG Base Excess 2.3 H (-2-2.0) A-a Gradient 57 mmHg O2 Delivery Device Nasal cannula Oxygen Flow Rate 2.0 FiO2 28.00 (21.00-100.00) % Sodium 136 (136-145) mEq/L Potassium 3.4 L (3.5-5.1) mEq/L Chloride 96 L (98-107) mEq/L Carbon Dioxide 27 (21-32) mEq/L Anion Gap 16.4 H (5-15) BUN 18 (7-18) mg/dL Creatinine 1.0 (0.55-1.02) mg/dL Est Cr Clr Drug Dosing 33.23 mL/min Estimated GFR (MDRD) 55 (>60) mL/min BUN/Creatinine Ratio 18.0 (14-18) Glucose 198 H (80-115) mg/dL Calcium 8.9 (8.5-10.1) mg/dL Total Bilirubin 0.3 (0.2-1.0) mg/dL AST 39 H (15-37) U/L ALT 31 (14-59) U/L Alkaline Phosphatase 102 (46-116) U/L Troponin I < 0.017 (0.00-0.056) ng/mL Total Protein 7.6 (6.4-8.2) g/dl Albumin 3.5 (3.4-5.0) g/dl Globulin 4.1 gm/dL Albumin/Globulin Ratio 0.9 L (1-2) Result Diagrams: 05/14/19 06:20 05/14/19 06:20 [place] Results Last 24 hrs: Microbiology 05/14/19 08:00 Influenza Type A Antigen Screen - Final Nasopharyngeal Swab NEGATIVE INFLUENZA A VIRUS AG REFERENCE RANGE: NEGATIVE Influenza Type B Antigen Screen - Final NEGATIVE INFLUENZA B VIRUS AG REFERENCE RANGE: NEGATIVE Sepsis Event Note - Evaluation Sepsis Screening Result: No Definite Risk - Focused Exam Vital Signs: Vital Signs Temp Pulse Resp BP Pulse Ox Pulse Ox Pulse Ox 05/14/19 09:13 80 L 05/14/19 06:32 96 05/14/19 06:18 37.2 C 108 H 28 H 172/72 H 96 Date Exam was Performed: 05/14/19 Time Exam was Performed: 20:10 Problem List Initiated/Reviewed/Updated: Yes Orders Last 24hrs: Active Orders 24 hr Category Date Time Status Patient Status [ADT] Routine ADT 05/14/19 10:46 Active EKG Documentation Completion [RC] STAT Care 05/14/19 06:35 Active Oxygen Therapy [RC] ASDIRECTED Care 05/14/19 07:09 Active RT Aerosol Therapy [RC] ASDIRECTED Care 05/14/19 06:32 Active RT Aerosol Therapy [RC] ASDIRECTED Care 05/14/19 09:03 Active Chest 1V Frontal [CR] Stat Exams 05/14/19 06:33 Taken Assessment/Plan Comment:: Acute: COPD Exacerbation. Carries a hx/o COPD/Asthma on Stiolto Respimat 2 puff INH day and Albuterol 1-2 puff INH Q4H PRN. CXR shows emphysematous change. Plan: [place] scheduled and PNR, IV Steroids, IV Magnesium, Glycopyrrolate INH BID, routine RT care, sputum culture, Decongestant/Expectorant and serial CXR as indicated. Significant Hypoxia. O2 sat in the 50% on RA. Now on 2L NC sating int he upper 90%. Continue supplemental O2. O2 studies and PFT after discharge. Nicotine Dependence. Smokes 1/2 a pack a day. Counseled on smoking cessation. Nicotine Patch Daily. Leukocytosis with WBC of 11.97. Likely 2/2 stress or recent steroid use. Will monitor. Mild Hypokalemia. K of 3.4. Replete and monitor. Hyperglycemia with BS of 198. Carries no hx/o DM or Glucose Intolerance but recently given steroids. Will monitor. Chronic: HTN, HLD, Pulmonary HTN, Hx/o Lung Scarring and Atelectasis, Mild- moderate Tricuspid Regurgitation, GERD, Seizure Disorder, Hypothyroidism, Hx/o Thyroid Nodules, Vit D Deficiency and Osteoporosis Plan: Admit to [facility]. Routine AM labs. Regular diet. RT consult. PT/OT for deconditioning. Code status is DNR. - Mortality Measure Prognosis:: Good
[2019-05-14] MEDS ORDERED: Bisacodyl 5 MG Tab PO PRN (11:30)
[2019-05-14] MEDS ORDERED: Morphine 2 MG/ML SYRINGE IVPUSH PRN (11:30)
[2019-05-14] MEDS ORDERED: Polyethylene Glycol 3350 Powder 17 GM Packet PO PRN (11:30)
[2019-05-14] MEDS ORDERED: Sodium Chloride 0.9% 10 ML Syringe FLUSH PRN (11:30)
[2019-05-14] MEDS ORDERED: Temazepam 7.5 MG Cap PO PRN (11:30)
[2019-05-14] MEDS ORDERED: Promethazine 6.25 MG in Sodium Chloride 0.9% 50 ML IV PRN (11:30)
[2019-05-14] MEDS ORDERED: Albuterol/Ipratropium 3.0-0.5 MG/3 ML Neb Soln NEB PRN (11:30)
[2019-05-14] MEDS ORDERED: Docusate Sodium 100 MG Cap PO PRN (11:30)
[2019-05-14] MEDS ORDERED: Ondansetron 4 MG/2 ML SDV IV PRN (11:30)
[2019-05-14] MEDS ORDERED: Acetaminophen 325 MG Tab PO PRN (11:30)
[2019-05-14] MEDS ORDERED: Acetaminophen/HYDROcodone 325-5 MG Tab PO PRN (11:30)
[2019-05-14] MEDS ORDERED: Potassium Chloride 20 MEQ Tab.ER PO ONE (11:38)
[2019-05-14] MEDS ORDERED: guaiFENesin/Dextromethorphan 100-10 MG/5 ML Soln 5 ML Cup PO PRN (11:40)
[2019-05-14] MEDS: methylPREDNISolone Sodium Succinate 40 MG/1 ML SDV IVPUSH SCH ×2 (16:13→23:31)
[2019-05-14] MEDS: guaiFENesin 600 MG Tab.ER PO SCH ×2 (16:14→20:32)
[2019-05-14] MEDS ORDERED: Albuterol/Ipratropium 3.0-0.5 MG/3 ML Neb Soln NEB SCH ×2 (20:00)
[2019-05-14] MEDS: Simvastatin 40 MG Tab PO SCH (20:32)
[2019-05-14] MEDS: Albuterol/Ipratropium 3.0-0.5 MG/3 ML Neb Soln NEB SCH (20:59)
[2019-05-14] MEDS: Glycopyrrolate 15.6 MCG Cap.W.Dev Kit of 6 IH SCH (21:00)
[2019-05-15] MEDS: Levothyroxine 50 MCG Tab PO SCH (05:00)
[2019-05-15] MEDS: Pantoprazole 40 MG Tab.CR PO SCH (05:00)
--- NOTE | 2019-05-15 07:03 | PCM.PN ---
- General Info Date of Service: 05/15/19 Admission Dx/Problem (Free Text): Admission Diagnosis/Problem Admission Diagnosis/Problem COPD, Moderate chronic obstructive pulmonary disease Subjective Update: Follow Up Functional Status: Reports: Pain Controlled, Tolerating Diet, Ambulating, Urinating - Review of Systems General: Denies: Fever, Chills HEENT: Reports: No Symptoms Pulmonary: Reports: Shortness of Breath, Cough, Sputum Gastrointestinal: Denies: Abdominal Pain, Nausea, Vomiting Genitourinary: Reports: No Symptoms Musculoskeletal: Reports: No Symptoms Skin: Denies: Cyanosis, Mottled, Diaphoresis, Rash Neurological: Denies: Confusion, Numbness, Trouble Speaking, Weakness Psychiatric: Denies: Anxiety, Agitation, Hallucinations Systems Review Comment:: Slept well last night. She feels and breathing better this AM. However she states she feels dry. - Patient Data Vitals - Most Recent: Last Vital Signs Temp 36.6 C 05/15/19 04:59 Pulse 74 05/15/19 04:59 Resp 20 05/15/19 04:59 BP 126/76 05/15/19 04:59 Pulse Ox 95 05/15/19 04:59 Weight - Most Recent: 35.38 kg I&O - Last 24 Hours: Intake & Output 05/14/19 05/15/19 05/15/19 22:59 06:59 14:59 Intake Total 580 600 Output Total 450 1000 Balance 130 -400 Lab Results Last 24 Hours: Laboratory Results - last 24 hr 05/14/19 05/14/19 05/14/19 Range/Units 06:20 06:20 06:20 WBC (3.98-10.04) K/mm3 RBC (3.98-5.22) M/mm3 Hgb (11.2-15.7) gm/dl Hct (34.1-44.9) % MCV (79.4-94.8) fl MCH (25.6-32.2) pg MCHC (32.2-35.5) g/dl RDW Std Deviation (36.4-46.3) fL Plt Count (182-369) K/mm3 MPV (9.4-12.3) fl Neut % (Auto) (34.0-71.1) % Lymph % (Auto) (19.3-51.7) % Faulk % (Auto) (4.7-12.5) % Eos % (Auto) (0.7-5.8) Baso % (Auto) (0.1-1.2) % Neut # (Auto) (1.56-6.13) K/mm3 Lymph # (Auto) (1.18-3.74) K/mm3 Faulk # (Auto) (0.24-0.36) K/mm3 Eos # (Auto) (0.04-0.36) K/mm3 Baso # (Auto) (0.01-0.08) K/mm3 Neutrophils % (Manual) 68 H (40-60) % Band Neutrophils % 0 (0-10) % Lymphocytes % (Manual) 26 (20-40) % Atypical Lymphs % 0 % Monocytes % (Manual) 6 (2-10) % Eosinophils % (Manual) 0 L (0.7-5.8) % Basophils % (Manual) 0 L (0.1-1.2) Platelet Estimate Adequate RBC Morph Comment Normal Sodium 136 (136-145) mEq/L Potassium 3.4 L (3.5-5.1) mEq/L Chloride 96 L (98-107) mEq/L Carbon Dioxide 27 (21-32) mEq/L Anion Gap 16.4 H (5-15) BUN 18 (7-18) mg/dL Creatinine 1.0 (0.55-1.02) mg/dL Est Cr Clr Drug Dosing 33.23 mL/min Estimated GFR (MDRD) 55 (>60) mL/min BUN/Creatinine Ratio 18.0 (14-18) Glucose 198 H (80-115) mg/dL Calcium 8.9 (8.5-10.1) mg/dL Magnesium (1.8-2.4) mg/dl Total Bilirubin 0.3 (0.2-1.0) mg/dL AST 39 H (15-37) U/L ALT 31 (14-59) U/L Alkaline Phosphatase 102 (46-116) U/L Troponin I < 0.017 (0.00-0.056) ng/mL C-Reactive Protein 1.3 H* (<1.0) mg/dL Total Protein 7.6 (6.4-8.2) g/dl Albumin 3.5 (3.4-5.0) g/dl Globulin 4.1 gm/dL Albumin/Globulin Ratio 0.9 L (1-2) 05/15/19 05/15/19 05/15/19 Range/Units 05:33 05:33 05:33 WBC 11.16 H (3.98-10.04) K/mm3 RBC 4.66 (3.98-5.22) M/mm3 Hgb 13.5 (11.2-15.7) gm/dl Hct 40.7 (34.1-44.9) % MCV 87.3 (79.4-94.8) fl MCH 29.0 (25.6-32.2) pg MCHC 33.2 (32.2-35.5) g/dl RDW Std Deviation 44.8 (36.4-46.3) fL Plt Count 245 (182-369) K/mm3 MPV 9.5 (9.4-12.3) fl Neut % (Auto) 79.3 H (34.0-71.1) % Lymph % (Auto) 15.9 L (19.3-51.7) % Faulk % (Auto) 4.5 L (4.7-12.5) % Eos % (Auto) 0.1 L (0.7-5.8) Baso % (Auto) 0.1 (0.1-1.2) % Neut # (Auto) 8.86 H (1.56-6.13) K/mm3 Lymph # (Auto) 1.77 (1.18-3.74) K/mm3 Faulk # (Auto) 0.50 H (0.24-0.36) K/mm3 Eos # (Auto) 0.01 L (0.04-0.36) K/mm3 Baso # (Auto) 0.01 (0.01-0.08) K/mm3 Neutrophils % (Manual) (40-60) % Band Neutrophils % (0-10) % Lymphocytes % (Manual) (20-40) % Atypical Lymphs % % Monocytes % (Manual) (2-10) % Eosinophils % (Manual) (0.7-5.8) % Basophils % (Manual) (0.1-1.2) Platelet Estimate RBC Morph Comment Sodium 140 (136-145) mEq/L Potassium 4.6 (3.5-5.1) mEq/L Chloride 102 (98-107) mEq/L Carbon Dioxide 29 (21-32) mEq/L Anion Gap 13.6 (5-15) BUN 26 H (7-18) mg/dL Creatinine 0.9 (0.55-1.02) mg/dL Est Cr Clr Drug Dosing 33.88 mL/min Estimated GFR (MDRD) > 60 (>60) mL/min BUN/Creatinine Ratio 28.9 H (14-18) Glucose 129 H (80-115) mg/dL Calcium 8.9 (8.5-10.1) mg/dL Magnesium 2.0 (1.8-2.4) mg/dl Total Bilirubin (0.2-1.0) mg/dL AST (15-37) U/L ALT (14-59) U/L Alkaline Phosphatase (46-116) U/L Troponin I (0.00-0.056) ng/mL C-Reactive Protein 0.5 (<1.0) mg/dL Total Protein (6.4-8.2) g/dl Albumin (3.4-5.0) g/dl Globulin gm/dL Albumin/Globulin Ratio (1-2) [place] Results Last 24 Hours: Microbiology 05/14/19 08:00 Influenza Type A Antigen Screen - Final Nasopharyngeal Swab NEGATIVE INFLUENZA A VIRUS AG REFERENCE RANGE: NEGATIVE Influenza Type B Antigen Screen - Final NEGATIVE INFLUENZA B VIRUS AG REFERENCE RANGE: NEGATIVE Med Orders - Current: Current Medications Acetaminophen (Tylenol) 650 mg PO Q4H PRN PRN Reason: Pain (Mild 1-3)/fever Hydrocodone Bitart/Acetaminophen ([place] 325-5 Mg) 1 tab PO Q4H PRN PRN Reason: Pain (moderate 4-6) Albuterol/Ipratropium (Duoneb 3.0-0.5 Mg/3 Ml) 3 ml NEB Q4H PRN PRN Reason: Shortness Of Breath/wheezing Albuterol/Ipratropium (Duoneb 3.0-0.5 Mg/3 Ml) 3 ml NEB Q12H DAVIE Last Admin: 05/14/19 20:59 Dose: 3 ml Amlodipine Besylate (Norvasc) 5 mg PO DAILY DAVIE Aspirin (Halfprin) 81 mg PO DAILY DAVIE Bisacodyl (Dulcolax) 5 mg PO DAILY PRN PRN Reason: Constipation Cholecalciferol (Vitamin D3) 5,000 unit PO DAILY [facility] Docusate Sodium (Colace) 100 mg PO BID PRN PRN Reason: Constipation Glycopyrrolate (Seebri Neohaler) 15.6 mcg IH BID [facility] Last Admin: 05/14/19 21:00 Dose: 1 cap Guaifenesin (Mucinex) 600 mg PO BID [facility] Last Admin: 05/14/19 20:32 Dose: 600 mg Guaifenesin/Phenylephrine HCl (Robitussin Dm) 10 ml PO Q4H PRN PRN Reason: Congestion Promethazine HCl 6.25 mg/ (Sodium Chloride) 50.25 mls @ 100 mls/hr IV Q6H PRN PRN Reason: Nausea/Vomiting Levothyroxine Sodium (Synthroid) 50 mcg PO ACBREAKFAST [facility] Last Admin: 05/15/19 05:00 Dose: 50 mcg Losartan Potassium (Cozaar) 25 mg PO DAILY [facility] Methylprednisolone Sodium Succinate (Solu-Medrol) 60 mg IVPUSH Q8H [facility] Last Admin: 05/14/19 23:31 Dose: 60 mg Morphine Sulfate (Morphine) 0.5 mg IVPUSH Q2H PRN PRN Reason: Dyspnea Stop: 05/15/19 11:33 Ondansetron HCl (Zofran) 4 mg IV Q6H PRN PRN Reason: Nausea/Vomiting Pantoprazole Sodium (Protonix) 40 mg PO ACBREAKFAST [facility] Last Admin: 05/15/19 05:00 Dose: 40 mg Polyethylene Glycol (Miralax) 17 gm PO DAILY PRN PRN Reason: Constipation Senna/Docusate Sodium (Senna Plus) 1 tab PO BID PRN PRN Reason: Constipation Simvastatin (Zocor) 40 mg PO BEDTIME [facility] Last Admin: 05/14/19 20:32 Dose: 40 mg Sodium Chloride (Saline Flush) 10 ml FLUSH ASDIRECTED PRN PRN Reason: Keep Vein Open Temazepam (Restoril) 7.5 mg PO BEDTIME PRN PRN Reason: Sleep Discontinued Medications Albuterol/Ipratropium (Duoneb 3.0-0.5 Mg/3 Ml) 3 ml NEB ONETIME ONE Stop: 05/14/19 06:31 Last Admin: 05/14/19 06:48 Dose: 3 ml Albuterol/Ipratropium (Duoneb 3.0-0.5 Mg/3 Ml) 3 ml NEB ONETIME ONE Stop: 05/14/19 09:04 Last Admin: 05/14/19 09:13 Dose: 3 ml Albuterol/Ipratropium (Duoneb 3.0-0.5 Mg/3 Ml) 3 ml NEB [id number] DAVIE Albuterol/Ipratropium (Duoneb 3.0-0.5 Mg/3 Ml) 3 ml NEB [id number] DAVIE Magnesium Sulfate/Dextrose 1 (gm/ Premix) 100 mls @ 100 mls/hr IV ONETIME ONE Stop: 05/14/19 12:39 Last Admin: 05/14/19 13:37 Dose: 100 mls/hr Methylprednisolone Sodium Succinate (Solu-Medrol) 125 mg IVPUSH ONETIME ONE Stop: 05/14/19 06:36 Last Admin: 05/14/19 07:09 Dose: 125 mg Non-Formulary Medication (Pravastatin [Pravachol]) 80 mg PO DAILY DAVIE Non-Formulary Medication (Teriparatide [Forteo]) 1 injection INJECT DAILY DAVIE Non-Formulary Medication (Tiotropium Br/Olodaterol Hcl [Stiolto Respimat Inhal Ada]) 2 puff INH DAILY DAVIE Non-Formulary Medication (Ubidecarenone [Co Q-10]) 200 mg PO DAILY DAVIE Evaluate Potassium (Level Daily) 1 each .XX DAILY DAVIE Potassium Chloride (Klor-Con M20) 60 meq PO ONETIME ONE Stop: 05/14/19 11:39 Last Admin: 05/14/19 13:37 Dose: 60 meq - Exam Quality Assessment: Supplemental Oxygen General: Alert, Oriented, Cooperative, No Acute Distress HEENT: Pupils Equal, Pupils Reactive, EOMI, Mucous Membr. Moist/[place] Neck: Supple, Trachea Midline Lungs: Normal Respiratory Effort, Decreased Breath Sounds, Other (improved aeration) Cardiovascular: Regular Rate, Regular Rhythm GI/Abdominal Exam: Normal Bowel Sounds, Soft, Non-Tender, No Organomegaly, No Distention, No Abnormal Bruit (Female) Exam: Deferred Back Exam: Normal Inspection, Decreased Range of Motion Extremities: Normal Inspection, Normal Range of Motion, Non-Tender, No Pedal Edema, Normal Capillary Refill Peripheral Pulses: 2+: Dorsalis Pedis (L), Dorsalis Pedis (R) Skin: Warm, Dry, Intact Neurological: No New Focal Deficit Psy/Mental Status: Alert, Normal Affect, Normal Mood Sepsis Event Note - Evaluation Sepsis Screening Result: No Definite Risk - Focused Exam Vital Signs: Vital Signs Temp Pulse Resp BP Pulse Ox Pulse Ox 05/15/19 04:59 36.6 C 74 20 126/76 95 05/14/19 23:29 36.6 C 88 17 117/61 95 05/14/19 21:02 97 05/14/19 20:28 36.2 C 82 20 113/64 97 Date Exam was Performed: 05/15/19 Time Exam was Performed: 18:55 - Problem List Review Problem List Initiated/Reviewed/Updated: Yes - My Orders Last 24 Hours: My Active Orders 05/14/19 11:30 Height and Weight [RC] 04 Oxygen Therapy [RC] PRN Up ad Chantal [RC] DAILY VTE/DVT Education [RC] BID Vital Signs [RC] Q4HR OT Evaluation and Treatment [CONS] Routine PT Evaluation and Treatment [CONS] Routine Respiratory Care Assess and Treatment [CONS] Routine Acetaminophen [Tylenol] 650 mg PO Q4H PRN Acetaminophen/HYDROcodone [Liberty 325-5 MG] 1 tab PO Q4H PRN Albuterol/Ipratropium [DuoNeb 3.0-0.5 MG/3 ML] 3 ml NEB Q4H PRN Docusate Sodium [Colace] 100 mg PO BID PRN Docusate Sodium/Sennosides [Senna Plus] 1 tab PO BID PRN Morphine 0.5 mg IVPUSH Q2H PRN Ondansetron [Zofran] 4 mg IV Q6H PRN Polyethylene Glycol 3350 [MiraLAX] 17 gm PO DAILY PRN Promethazine [Phenergan] 6.25 mg Sodium Chloride 0.9% [Normal Saline] 50 ml IV Q6H Sodium Chloride 0.9% [Saline Flush] 10 ml FLUSH ASDIRECTED PRN Temazepam [Restoril] 7.5 mg PO BEDTIME PRN bisacodyL [Dulcolax] 5 mg PO DAILY PRN Saline Lock Insert [OM.PC] Routine Resuscitation Status Routine 05/14/19 11:31 Cardiac Monitoring [RC] CONTINUOUS Intake and Output [RC] 04,16 Pulse Oximetry [RC] PRN 05/14/19 11:33 Antiembolic Devices [RC] BID Sequential Compression Device [OM.PC] Per Unit Routine 05/14/19 11:40 Dextromethorphan/guaiFENesin [Robitussin DM] 10 ml PO Q4H PRN 05/14/19 11:41 Flutter Valve Therapy [RT Chest Physiotherapy] [RC] .PRN 05/14/19 11:45 CULTURE SPUTUM + SMEAR [RM] Routine 05/14/19 14:15 guaiFENesin [Mucinex] 600 mg PO BID 05/14/19 16:00 methylPREDNISolone Sod Succ [Solu-MEDROL] 60 mg IVPUSH Q8H 05/14/19 21:00 Albuterol/Ipratropium [DuoNeb 3.0-0.5 MG/3 ML] 3 ml NEB Q12H Glycopyrrolate [Seebri Neohaler] 15.6 mcg IH BID Simvastatin [Zocor] 40 mg PO BEDTIME 05/14/19 Dinner Regular Diet [DIET] 05/15/19 05:33 CBC WITH AUTO DIFF [HEME] AM 05/15/19 06:00 Levothyroxine [Synthroid] 50 mcg PO ACBREAKFAST Pantoprazole [ProTONIX] 40 mg PO ACBREAKFAST 05/15/19 09:00 Aspirin [Halfprin] 81 mg PO DAILY Cholecalciferol (Vitamin D3) [Vitamin D3] 5,000 unit PO DAILY Losartan [Cozaar] 25 mg PO DAILY amLODIPine [Norvasc] 5 mg PO DAILY 05/16/19 05:00 BASIC METABOLIC PANEL,BMP [CHEM] DAILY 05/16/19 05:11 C-REACTIVE PROTEIN [CHEM] AM CBC WITH AUTO DIFF [HEME] AM MAGNESIUM [CHEM] AM 05/17/19 05:00 BASIC METABOLIC PANEL,BMP [CHEM] DAILY 05/17/19 05:11 C-REACTIVE PROTEIN [CHEM] AM CBC WITH AUTO DIFF [HEME] AM MAGNESIUM [CHEM] AM 05/18/19 05:00 BASIC METABOLIC PANEL,BMP [CHEM] DAILY 05/18/19 05:11 CBC WITH AUTO DIFF [HEME] AM MAGNESIUM [CHEM] AM 05/19/19 05:00 BASIC METABOLIC PANEL,BMP [CHEM] DAILY 05/19/19 05:11 CBC WITH AUTO DIFF [HEME] AM MAGNESIUM [CHEM] AM - Plan Plan:: Acute: COPD Exacerbation, Improving. Carries a hx/o COPD/Asthma on Stiolto Respimat 2 puff INH day and Albuterol 1-2 puff INH Q4H PRN. CXR shows emphysematous change. Plan: Dounebs scheduled and PNR, IV Steroids, IV Magnesium, Glycopyrrolate INH BID, Routine RT care, sputum culture, Decongestant/ Expectorant and serial CXR as indicated. She is now down to 1L NC sating bet 91- 94%. Significant Hypoxia, Improved. O2 sat in the 50% on RA. Now on 2L NC sating int he upper 90%. Continue supplemental O2. O2 studies and PFT after discharge. Nicotine Dependence. Smokes 1/2 a pack a day. Counseled on smoking cessation. Nicotine Patch Daily. Leukocytosis with WBC of 11.97-->11.16. Likely 2/2 stress or recent steroid use. Will monitor. Hyperglycemia with BS of 198. Carries no hx/o DM or Glucose Intolerance but recently given steroid. Will monitor. Resolved: S/p Mild Hypokalemia. K of 3.4. Replete and monitor. Chronic: HTN, HLD, Pulmonary HTN, Hx/o Lung Scarring and Atelectasis, Mild- moderate Tricuspid Regurgitation, GERD, Seizure Disorder, Hypothyroidism, Hx/o Thyroid Nodules, Vit D Deficiency and Osteoporosis Plan: She is responding to treatment. Routine AM labs. Regular diet. RT consult. PT/OT for deconditioning. Encourage to use bedside respiratory toys. Code status is DNR.
--- NOTE | 2019-05-15 07:23 | CR ---
Chest: Portable view of the chest was obtained. Comparison: Prior chest x-ray of 02/12/19. Heart size and mediastinum are normal. Lungs are clear but hyperinflated. Bony structures are grossly intact. Impression: 1. Emphysematous change. 2. Nothing acute is otherwise seen on portable chest x-ray. Diagnostic code #2 This report was dictated in [place] Standard Time
[2019-05-15] MEDS: Losartan 25 MG Tab PO SCH (08:14)
[2019-05-15] MEDS: Aspirin 81 MG Tab.EC PO SCH (08:14)
[2019-05-15] MEDS: guaiFENesin 600 MG Tab.ER PO SCH ×2 (08:14→20:24)
[2019-05-15] MEDS: amLODIPine 5 MG Tab PO SCH (08:14)
[2019-05-15] MEDS: Cholecalciferol (Vitamin D3) 5,000 UNIT Tab PO SCH (08:14)
[2019-05-15] MEDS: methylPREDNISolone Sodium Succinate 40 MG/1 ML SDV IVPUSH SCH ×3 (08:15→23:58)
[2019-05-15] MEDS: Albuterol/Ipratropium 3.0-0.5 MG/3 ML Neb Soln NEB SCH ×2 (08:43→20:55)
[2019-05-15] MEDS: Glycopyrrolate 15.6 MCG Cap.W.Dev Kit of 6 IH SCH ×2 (08:44→20:55)
[2019-05-15] MEDS ORDERED: Non-Formulary Medication 1 Each (Ubidecarenone [Co Q-10] 200 MG) PO SCH (09:00)
[2019-05-15] MEDS ORDERED: TERIPARATIDE INJECT SCH (09:00)
[2019-05-15] MEDS ORDERED: Non-Formulary Medication 1 Each (Pravastatin [Pravachol] 80 MG) PO SCH (09:00)
[2019-05-15] MEDS ORDERED: [UNRECOGNIZED DRUG - REMARK] SCH (09:00)
[2019-05-15] MEDS: Azithromycin 250 MG Tab PO SCH (09:34)
[2019-05-15] MEDS: Simvastatin 40 MG Tab PO SCH (20:24)
[2019-05-16] MEDS ORDERED: Aluminum Hydroxide/Magnesium Hydroxide/Simethicone Susp 30 ML Cup PO ONE (04:14)
[2019-05-16] MEDS: Pantoprazole 40 MG Tab.CR PO SCH (05:12)
[2019-05-16] MEDS: Levothyroxine 50 MCG Tab PO SCH (05:12)
--- NOTE | 2019-05-16 08:28 | CR ---
Chest: Portable view of the chest was obtained. Comparison: Prior chest x-ray of 05/14/19. Heart size is normal. Tortuous thoracic aorta is seen. Lungs are hyperinflated compatible with emphysematous change. No acute parenchymal change is appreciated within either lung. Impression: 1. Emphysematous change. 2. Nothing acute is appreciated on portable chest x-ray. No change seen from previous chest x-ray. Diagnostic code #2 This report was dictated in [place] Standard Time
[2019-05-16] MEDS: Azithromycin 250 MG Tab PO SCH (08:48)
[2019-05-16] MEDS: guaiFENesin 600 MG Tab.ER PO SCH ×2 (08:49→20:04)
[2019-05-16] MEDS: amLODIPine 5 MG Tab PO SCH (08:51)
[2019-05-16] MEDS: Losartan 25 MG Tab PO SCH (08:51)
[2019-05-16] MEDS: Aspirin 81 MG Tab.EC PO SCH (08:52)
[2019-05-16] MEDS: Cholecalciferol (Vitamin D3) 5,000 UNIT Tab PO SCH (08:52)
[2019-05-16] MEDS: methylPREDNISolone Sodium Succinate 40 MG/1 ML SDV IVPUSH SCH ×2 (08:54→20:05)
--- NOTE | 2019-05-16 09:01 | PCM.PN ---
- General Info Date of Service: 05/16/19 Admission Dx/Problem (Free Text): Admission Diagnosis/Problem Admission Diagnosis/Problem COPD, Moderate chronic obstructive pulmonary disease Subjective Update: In to see Crystal. She is still on 1L O2. Attempting to wean down. Will start IS. Decreasing steroid dosing and frequency. Functional Status: Reports: Pain Controlled, Tolerating Diet, Ambulating, Urinating, Incentive Spirometry, Other (Acapella ). Denies: New Symptoms - Review of Systems General: Reports: No Symptoms. Denies: Fever, Weakness, Fatigue, Malaise HEENT: Reports: No Symptoms. Denies: Headaches, Sore Throat Pulmonary: Reports: Shortness of Breath (improved ), Cough (improved ), Sputum ( occasional ). Denies: Wheezing Cardiovascular: Reports: Dyspnea on Exertion. Denies: Chest Pain Gastrointestinal: Reports: No Symptoms, Other (Abdominal muscles feel tight ). Denies: Abdominal Pain, Constipation, Diarrhea, Nausea, Vomiting Genitourinary: Reports: No Symptoms. Denies: Pain Musculoskeletal: Reports: No Symptoms Skin: Reports: No Symptoms Neurological: Reports: No Symptoms. Denies: Confusion, Difficulty Walking, Gait Disturbance Psychiatric: Reports: No Symptoms - Patient Data Vitals - Most Recent: Last Vital Signs Temp 98.2 F 05/16/19 03:53 Pulse 70 05/16/19 03:53 Resp 18 05/16/19 03:53 BP 126/86 05/16/19 08:51 Pulse Ox 95 05/16/19 03:53 Weight - Most Recent: 79 lb 3.2 oz I&O - Last 24 Hours: Intake & Output 05/15/19 05/16/19 05/16/19 22:59 06:59 14:59 Intake Total 1060 700 Output Total 1999 1650 Balance -940 -950 Lab Results Last 24 Hours: Laboratory Results - last 24 hr 05/16/19 05/16/19 05/16/19 Range/Units 02:25 02:25 02:25 WBC 16.38 H (3.98-10.04) K/mm3 RBC 4.70 (3.98-5.22) M/mm3 Hgb 13.8 (11.2-15.7) gm/dl Hct 41.0 (34.1-44.9) % MCV 87.2 (79.4-94.8) fl MCH 29.4 (25.6-32.2) pg MCHC 33.7 (32.2-35.5) g/dl RDW Std Deviation 44.7 (36.4-46.3) fL Plt Count 279 (182-369) K/mm3 MPV 9.5 (9.4-12.3) fl Neut % (Auto) 87.1 H (34.0-71.1) % Lymph % (Auto) 8.0 L (19.3-51.7) % Blair % (Auto) 4.6 L (4.7-12.5) % Eos % (Auto) 0 L (0.7-5.8) Baso % (Auto) 0.1 (0.1-1.2) % Neut # (Auto) 14.26 H (1.56-6.13) K/mm3 Lymph # (Auto) 1.31 (1.18-3.74) K/mm3 Blair # (Auto) 0.75 H (0.24-0.36) K/mm3 Eos # (Auto) 0.00 L (0.04-0.36) K/mm3 Baso # (Auto) 0.02 (0.01-0.08) K/mm3 Manual Slide Review Abnormal smear Sodium 140 (136-145) mEq/L Potassium 4.5 (3.5-5.1) mEq/L Chloride 102 (98-107) mEq/L Carbon Dioxide 28 (21-32) mEq/L Anion Gap 14.5 (5-15) BUN 36 H (7-18) mg/dL Creatinine 0.8 (0.55-1.02) mg/dL Est Cr Clr Drug Dosing 38.11 mL/min Estimated GFR (MDRD) > 60 (>60) mL/min BUN/Creatinine Ratio 45.0 H (14-18) Glucose 130 H (80-115) mg/dL Calcium 8.8 (8.5-10.1) mg/dL Magnesium 1.7 L (1.8-2.4) mg/dl Troponin I (0.00-0.056) ng/mL C-Reactive Protein 0.2 (<1.0) mg/dL 05/16/19 Range/Units 02:25 WBC (3.98-10.04) K/mm3 RBC (3.98-5.22) M/mm3 Hgb (11.2-15.7) gm/dl Hct (34.1-44.9) % MCV (79.4-94.8) fl MCH (25.6-32.2) pg MCHC (32.2-35.5) g/dl RDW Std Deviation (36.4-46.3) fL Plt Count (182-369) K/mm3 MPV (9.4-12.3) fl Neut % (Auto) (34.0-71.1) % Lymph % (Auto) (19.3-51.7) % Blair % (Auto) (4.7-12.5) % Eos % (Auto) (0.7-5.8) Baso % (Auto) (0.1-1.2) % Neut # (Auto) (1.56-6.13) K/mm3 Lymph # (Auto) (1.18-3.74) K/mm3 Blair # (Auto) (0.24-0.36) K/mm3 Eos # (Auto) (0.04-0.36) K/mm3 Baso # (Auto) (0.01-0.08) K/mm3 Manual Slide Review Sodium (136-145) mEq/L Potassium (3.5-5.1) mEq/L Chloride (98-107) mEq/L Carbon Dioxide (21-32) mEq/L Anion Gap (5-15) BUN (7-18) mg/dL Creatinine (0.55-1.02) mg/dL Est Cr Clr Drug Dosing mL/min Estimated GFR (MDRD) (>60) mL/min BUN/Creatinine Ratio (14-18) Glucose (80-115) mg/dL Calcium (8.5-10.1) mg/dL Magnesium (1.8-2.4) mg/dl Troponin I < 0.017 (0.00-0.056) ng/mL C-Reactive Protein (<1.0) mg/dL Francisco Results Last 24 Hours: Microbiology 05/15/19 09:20 Gram Stain - Final Sputum - Expectorated Med Orders - Current: Current Medications Acetaminophen (Tylenol) 650 mg PO Q4H PRN PRN Reason: Pain (Mild 1-3)/fever Hydrocodone Bitart/Acetaminophen (Haywood 325-5 Mg) 1 tab PO Q4H PRN PRN Reason: Pain (moderate 4-6) Last Admin: 05/16/19 02:17 Dose: 1 tab Albuterol/Ipratropium (Duoneb 3.0-0.5 Mg/3 Ml) 3 ml NEB Q4H PRN PRN Reason: Shortness Of Breath/wheezing Last Admin: 05/15/19 14:24 Dose: 3 ml Albuterol/Ipratropium (Duoneb 3.0-0.5 Mg/3 Ml) 3 ml NEB Q12H [facility] Last Admin: 05/15/19 20:55 Dose: 3 ml Amlodipine Besylate (Norvasc) 5 mg PO DAILY [facility] Last Admin: 05/16/19 08:51 Dose: 5 mg Aspirin (Halfprin) 81 mg PO DAILY [facility] Last Admin: 05/16/19 08:52 Dose: 81 mg Azithromycin (Zithromax) 250 mg PO DAILY [facility] Last Admin: 05/16/19 08:48 Dose: 250 mg Bisacodyl (Dulcolax) 5 mg PO DAILY PRN PRN Reason: Constipation Cholecalciferol (Vitamin D3) 5,000 unit PO DAILY [facility] Last Admin: 05/16/19 08:52 Dose: 5,000 unit Docusate Sodium (Colace) 100 mg PO BID PRN PRN Reason: Constipation Last Admin: 05/15/19 20:24 Dose: 100 mg Glycopyrrolate (Seebri Neohaler) 15.6 mcg IH BID [facility] Last Admin: 05/15/19 20:55 Dose: 1 cap Guaifenesin (Mucinex) 600 mg PO BID [facility] Last Admin: 05/16/19 08:49 Dose: 600 mg Guaifenesin/Phenylephrine HCl (Robitussin Dm) 10 ml PO Q4H PRN PRN Reason: Congestion Promethazine HCl 6.25 mg/ (Sodium Chloride) 50.25 mls @ 100 mls/hr IV Q6H PRN PRN Reason: Nausea/Vomiting Levothyroxine Sodium (Synthroid) 50 mcg PO ACBREAKFAST [facility] Last Admin: 05/16/19 05:12 Dose: 50 mcg Losartan Potassium (Cozaar) 25 mg PO DAILY [facility] Last Admin: 05/16/19 08:51 Dose: 25 mg Methylprednisolone Sodium Succinate (Solu-Medrol) 60 mg IVPUSH Q8H [facility] Last Admin: 05/16/19 08:54 Dose: 60 mg Ondansetron HCl (Zofran) 4 mg IV Q6H PRN PRN Reason: Nausea/Vomiting Pantoprazole Sodium (Protonix) 40 mg PO ACBREAKFAST [facility] Last Admin: 05/16/19 05:12 Dose: 40 mg Polyethylene Glycol (Miralax) 17 gm PO DAILY PRN PRN Reason: Constipation Senna/Docusate Sodium (Senna Plus) 1 tab PO BID PRN PRN Reason: Constipation Simvastatin (Zocor) 40 mg PO BEDTIME [facility] Last Admin: 05/15/19 20:24 Dose: 40 mg Sodium Chloride (Saline Flush) 10 ml FLUSH ASDIRECTED PRN PRN Reason: Keep Vein Open Temazepam (Restoril) 7.5 mg PO BEDTIME PRN PRN Reason: Sleep Discontinued Medications Al Hydroxide/Mg Hydroxide (Mag-Al Plus) 30 ml PO ONETIME ONE Stop: 05/16/19 04:15 Last Admin: 05/16/19 04:15 Dose: 30 ml Albuterol/Ipratropium (Duoneb 3.0-0.5 Mg/3 Ml) 3 ml NEB ONETIME ONE Stop: 05/14/19 06:31 Last Admin: 05/14/19 06:48 Dose: 3 ml Albuterol/Ipratropium (Duoneb 3.0-0.5 Mg/3 Ml) 3 ml NEB ONETIME ONE Stop: 05/14/19 09:04 Last Admin: 05/14/19 09:13 Dose: 3 ml Albuterol/Ipratropium (Duoneb 3.0-0.5 Mg/3 Ml) 3 ml NEB [id number] DAVIE Albuterol/Ipratropium (Duoneb 3.0-0.5 Mg/3 Ml) 3 ml NEB [id number] [id number] Magnesium Sulfate/Dextrose 1 (gm/ Premix) 100 mls @ 100 mls/hr IV ONETIME ONE Stop: 05/14/19 12:39 Last Admin: 05/14/19 13:37 Dose: 100 mls/hr Methylprednisolone Sodium Succinate (Solu-Medrol) 125 mg IVPUSH ONETIME ONE Stop: 05/14/19 06:36 Last Admin: 05/14/19 07:09 Dose: 125 mg Morphine Sulfate (Morphine) 0.5 mg IVPUSH Q2H PRN PRN Reason: Dyspnea Stop: 05/15/19 11:33 Non-Formulary Medication (Pravastatin [Pravachol]) 80 mg PO DAILY [facility] Non-Formulary Medication (Teriparatide [Forteo]) 1 injection INJECT DAILY DAVIE Non-Formulary Medication (Tiotropium Br/Olodaterol Hcl [Stiolto Respimat Inhal Cascade]) 2 puff INH DAILY [facility] Non-Formulary Medication (Ubidecarenone [Co Q-10]) 200 mg PO DAILY [facility] Evaluate Potassium (Level Daily) 1 each .XX DAILY [facility] Potassium Chloride (Klor-Con M20) 60 meq PO ONETIME ONE Stop: 05/14/19 11:39 Last Admin: 05/14/19 13:37 Dose: 60 meq - Exam Quality Assessment: DVT Prophylaxis General: Alert, Oriented, Cooperative, No Acute Distress HEENT: Pupils Equal, Pupils Reactive Neck: Supple, Trachea Midline Lungs: Normal Respiratory Effort, Decreased Breath Sounds Cardiovascular: Regular Rate, Regular Rhythm GI/Abdominal Exam: Normal Bowel Sounds, Soft, Non-Tender, No Distention, No Abnormal Bruit (Female) Exam: Deferred Back Exam: Normal Inspection, Full Range of Motion Extremities: Normal Inspection, Normal Range of Motion, Non-Tender, No Pedal Edema, Normal Capillary Refill Skin: Warm, Dry, Intact Neurological: No New Focal Deficit Psy/Mental Status: Alert, Normal Affect, Normal Mood Sepsis Event Note - Evaluation Sepsis Screening Result: No Definite Risk - Focused Exam Vital Signs: Vital Signs Temp Pulse Resp BP Pulse Ox 05/16/19 08:51 126/86 05/16/19 03:53 98.2 F 70 18 116/69 95 05/16/19 02:17 98.2 F 74 20 132/89 92 L 05/15/19 23:57 98.2 F 82 19 105/70 95 Date Exam was Performed: 05/16/19 Time Exam was Performed: 11:48 - Problem List & Annotations (1) COPD exacerbation SNOMED Code(s): 004381006 Code(s): J44.1 - CHRONIC OBSTRUCTIVE PULMONARY DISEASE W (ACUTE) EXACERBATION Status: Acute Priority: High Current Visit: Yes (2) Hypoxia SNOMED Code(s): 653151363 Code(s): R09.02 - HYPOXEMIA Status: Acute Priority: High Current Visit : Yes (3) Nicotine dependence SNOMED Code(s): 88545043 Code(s): F17.200 - NICOTINE DEPENDENCE, UNSPECIFIED, UNCOMPLICATED Status: Chronic Priority: Medium Current Visit: Yes Qualifiers: Nicotine product type: cigarettes Substance use status: unspecified nicotine-induced disorder Qualified Code(s): F17.219 - Nicotine dependence, cigarettes, with unspecified nicotine-induced disorders (4) Leukocytosis SNOMED Code(s): 851570454, 754775720 Code(s): D72.829 - ELEVATED WHITE BLOOD CELL COUNT, UNSPECIFIED Status: Acute Priority: High Current Visit: Yes Qualifiers: Leukocytosis type: unspecified Qualified Code(s): D72.829 - Elevated white blood cell count, unspecified (5) Moraxella catarrhalis bronchitis SNOMED Code(s): 45476184 Code(s): J40 - BRONCHITIS, NOT SPECIFIED ACUTE OR CHRONIC; B96.89 - OTH BACTERIAL AGENTS THE CAUSE OF DISEASES CLASSD [id number] Status: Acute Priority: High Current Visit: Yes (6) Hypokalemia SNOMED Code(s): 42665270 Code(s): E87.6 - HYPOKALEMIA Status: Resolved Priority: High Current Visit: Yes (7) Hypomagnesemia SNOMED Code(s): 977958116 Code(s): E83.42 - HYPOMAGNESEMIA Status: Acute Current Visit: Yes - Problem List Review Problem List Initiated/Reviewed/Updated: Yes - Plan Plan:: Acute: COPD Exacerbation, Improving. Carries a hx/o COPD/Asthma on Stiolto Respimat 2 puff INH day and Albuterol 1-2 puff INH Q4H PRN. CXR shows emphysematous change. Plan: Dounebs scheduled and PNR, IV Steroids, IV Magnesium, Glycopyrrolate INH BID, Routine RT care, Decongestant/Expectorant and serial CXR as indicated. She is now down to 1L NC sating between 91-94%. Sputum culture : Probable M. Catarrhalis. On Azithromycin. Significant Hypoxia, Improved. O2 sat in the 50% on RA. Now on 1L NC sating in the 90%s. Continue supplemental O2. O2 studies and PFT after discharge. Nicotine Dependence. Smokes 1/2 a pack a day. Counseled on smoking cessation. Nicotine Patch Daily. Leukocytosis with WBC of 11.97-->11.16-->16.38. Likely 2/2 stress or recent steroid use. Will monitor. Hyperglycemia with BS of 198-->130. Carries no hx/o DM or Glucose Intolerance but recently given steroid. Will monitor. Hypomagnesemia with magnesium of 1.7. Supplement Resolved: S/p Mild Hypokalemia. K of 3.4. Replete and monitor. Chronic: HTN, HLD, Pulmonary HTN, Hx/o Lung Scarring and Atelectasis, Mild- moderate Tricuspid Regurgitation, GERD, Seizure Disorder, Hypothyroidism, Hx/o Thyroid Nodules, Vit D Deficiency and Osteoporosis Plan: She is responding to treatment. Routine AM labs. Regular diet. RT consult. PT/OT for deconditioning. Encourage to use bedside respiratory devices. Code status is DNR.
[2019-05-16] MEDS: Albuterol/Ipratropium 3.0-0.5 MG/3 ML Neb Soln NEB SCH ×2 (09:52→20:23)
[2019-05-16] MEDS: Glycopyrrolate 15.6 MCG Cap.W.Dev Kit of 6 IH SCH ×2 (09:52→20:24)
[2019-05-16] MEDS ORDERED: Magnesium Oxide 400 MG Tab PO ONE ×2 (11:45→14:30)
[2019-05-16] MEDS: Simvastatin 40 MG Tab PO SCH (20:04)
[2019-05-16] MEDS ORDERED: Aluminum Hydroxide/Magnesium Hydroxide/Simethicone Susp 30 ML Cup PO PRN (20:59)
[2019-05-17 04:47] LABS: BORDETELLA PARAPERT IS1001 Not Detected (Not Detected)
[2019-05-17] MEDS: Levothyroxine 50 MCG Tab PO SCH (06:46)
[2019-05-17] MEDS: Pantoprazole 40 MG Tab.CR PO SCH (06:46)
[2019-05-17] MEDS: Albuterol/Ipratropium 3.0-0.5 MG/3 ML Neb Soln NEB SCH (08:16)
[2019-05-17] MEDS: Glycopyrrolate 15.6 MCG Cap.W.Dev Kit of 6 IH SCH (08:17)
[2019-05-17] MEDS: Losartan 25 MG Tab PO SCH (09:13)
[2019-05-17] MEDS: Azithromycin 250 MG Tab PO SCH (09:13)
[2019-05-17] MEDS: Aspirin 81 MG Tab.EC PO SCH (09:13)
[2019-05-17] MEDS: guaiFENesin 600 MG Tab.ER PO SCH (09:13)
[2019-05-17] MEDS: Cholecalciferol (Vitamin D3) 5,000 UNIT Tab PO SCH (09:13)
[2019-05-17] MEDS: methylPREDNISolone Sodium Succinate 40 MG/1 ML SDV IVPUSH SCH (09:13)
[2019-05-17] MEDS: amLODIPine 5 MG Tab PO SCH (09:13)
--- NOTE | 2019-05-17 09:29 | PCM.DCSUM1 ---
Discharge Summary - Hospital Course HPI Initial Comments: This is a 68 yo elderly white female with past medical hx/o HTN, HLD, Pulmonary HTN, Mild-Moderate Tricuspid Regurgitation, COPD/Asthma, GERD, Seizure Disorder , Hypothyroidism, Hx/o Thyroid Nodules, Vit D Deficiency and Osteoporosis who presents to ED with complaints of increasing shortness of breath that has been going on for a few days now. Her chief complaint is associated with dry cough. She denies having fever or chills. No report of chest pain or GI issues. She has inhalers for maintenance medications. She is not on home supplemental O2. She still smokes 1/2 pack a day for 20 years. Her initial work up in ED shows a CBC remarkable for WBC of 11.97, MVC of 9.2, and Neutrophils of 68%. Her ABG shows a pH of 7.36, pCO2 of 51.3, pO2 of 80, hCO3 of 28.1, and O2 sat of 92.3% on 2L NC. Her chemistry is significant for K of 3.4, Cl of 96, AG of 16.4, BS of 198, AST of 39 and CRP of 1.3. Her chest x- ray shows emphysematous change. Patient received initial treatment in ED prior to coming in for further management of COPD exacerbation. Diagnosis: Stroke: No - Discharge Data Discharge Date: 05/17/19 (Admit date: 05/14/18) Discharge Disposition: Home, Self-Care 01 Condition: Good - Referral to Home Health Primary Care Physician: Nuno Phillips MD - Discharge Diagnosis/Problem(s) (1) COPD exacerbation SNOMED Code(s): 592802639 ICD Code: J44.1 - CHRONIC OBSTRUCTIVE PULMONARY DISEASE W (ACUTE) EXACERBATION Status: Acute Priority: High Current Visit: Yes (2) Hypoxia SNOMED Code(s): 308767882 ICD Code: R09.02 - HYPOXEMIA Status: Acute Priority: High Current Visit : Yes (3) Nicotine dependence SNOMED Code(s): 83267301 ICD Code: F17.200 - NICOTINE DEPENDENCE, UNSPECIFIED, UNCOMPLICATED Status : Chronic Priority: Medium Current Visit: Yes Qualifiers: Nicotine product type: cigarettes Substance use status: unspecified nicotine-induced disorder Qualified Code(s): F17.219 - Nicotine dependence, cigarettes, with unspecified nicotine-induced disorders (4) Leukocytosis SNOMED Code(s): 829426786, 016740203 ICD Code: D72.829 - ELEVATED WHITE BLOOD CELL COUNT, UNSPECIFIED Status: Acute Priority: High Current Visit: Yes Qualifiers: Leukocytosis type: unspecified Qualified Code(s): D72.829 - Elevated white blood cell count, unspecified (5) Moraxella catarrhalis bronchitis SNOMED Code(s): 68490821 ICD Code: J40 - BRONCHITIS, NOT SPECIFIED ACUTE OR CHRONIC; B96.89 - OTH BACTERIAL AGENTS THE CAUSE OF DISEASES CLASSD ELSWHR Status: Acute Priority: High Current Visit: Yes (6) Hypokalemia SNOMED Code(s): 02575448 ICD Code: E87.6 - HYPOKALEMIA Status: Resolved Priority: High Current Visit: Yes (7) Hypomagnesemia SNOMED Code(s): 125108675 ICD Code: E83.42 - HYPOMAGNESEMIA Status: Acute Current Visit: Yes - Patient Summary/Data Consults: Consultations 05/14/19 11:30 OT Evaluation and Treatment [CONS] Routine PT Evaluation and Treatment [CONS] Routine Respiratory Care Assess and Treatment [CONS] Routine Labs Pending at D/C: None Recommended Follow-up Testing/Procedures: Follow-up with primary care provider within 5-7 days of discharge, sooner if needed. Recommend follow-up with pulmonology after discharge and PFT. Hospital Course: Crystal was admitted to the medical floor for what is thought to be a COPD exacerbation. While she does not reportedly have a formal COPD diagnosis her chest x-ray does show emphysematous change and she does have a significant smoking history, in fact she does still smoke 1/2 pack a day, sometimes more. While here she was refusing nicotine patches. White count was very mildly elevated on admission and this did trend up as she received steroids. Respiratory viral panel returned negative however her sputum culture did grow out probable Moraxella catarrhalis. She had already been receiving azithromycin and this should cover for this. Her steroids were trimmed down with good response. She did utilize incentive spirometry and Acapella. She was also given Mucinex and Robitussin-DM with good response. She did report that she is normally somewhat short of breath and does have a cough. Unfortunately we were unable to get her off of oxygen and she will be discharged on 1 L of oxygen via nasal cannula, 1.5 L with activity.She will be discharged on 5 days worth of twice daily DuoNebs, 2 more days of azithromycin, PRN Robitussin-DM, 600 mg p.o. twice daily, Mucinex for 5 more days, a Medrol Dosepak, and a 14 mg nicotine patch. We did discuss her smoking status and possible resources available to her. These were included in her discharge summary. As noted she will need to follow-up with her primary care provider as she may need an increase or decrease in dosing. There is also obviously a concern over oxygen use while smoking. She is instructed to follow-up with her primary care provider within 5 to 7 days of discharge, sooner if needed. She would also likely benefit from a pulmonology visit after discharge and this will likely need to be set up through her primary care office. Recommending PFT after symptoms resolved. She instructed to continue to utilize her incentive spirometer and Acapella until symptoms resolved. She was advised to follow-up with her primary care provider or return to the emergency room should symptoms return or worsen. She was discharged today. - Patient Instructions Diet: Usual Diet as Tolerated Activity: As Tolerated Showering/Bathing: May Shower Notify Provider of: Fever, Increased Pain, Nausea and/or Vomiting Other/Special Instructions: Follow-up with primary care provider within 5-7 days of discharge. Recommend outpatient pulmonary function testing and eeler follow-up. These can be set up with your primary care provider if we are unable to schedule you here. Resume home medications as indicated. Take all new medications as prescribed. Continue to utilize your incentive spirometry (clear/blue device you inhale through) and acapella (green tube you blow through) until symptoms resolve. Continue to wear home oxygen 1L at all times and 1.5L with activity. Should symtpoms return or worsen, contact your primary care provider or return to the emergency department. - Discharge Plan *PRESCRIPTION DRUG MONITORING PROGRAM REVIEWED*: No *COPY OF PRESCRIPTION DRUG MONITORING REPORT IN PATIENT GINA: No Prescriptions/Med Rec: Albuterol/Ipratropium [DuoNeb 3.0-0.5 MG/3 ML] 3 ml NEB Q12H #10 neb Azithromycin [Zithromax] 250 mg PO DAILY #2 tablet Dextromethorphan/guaiFENesin [Robitussin DM] 10 ml PO Q4H PRN #1 cup PRN Reason: Congestion guaiFENesin [Mucinex] 600 mg PO BID #10 tab.er methylPREDNISolone [Medrol] 4 mg PO ASDIRECTED #1 dosepk Nicotine [Habitrol] 14 mg TOP DAILY #15 patch Home Medications: Home Meds Levothyroxine [Synthroid] 50 mcg PO DAILY 06/04/14 [History] Losartan [Cozaar] 25 mg PO DAILY 06/04/14 [History] Pravastatin [Pravachol] 80 mg PO DAILY 06/04/14 [History] amLODIPine [Norvasc] 5 mg PO DAILY 06/04/14 [History] Albuterol [Ventolin HFA] 1 - 2 puff INH Q4H PRN 02/12/19 [History] Aspirin [Halfprin] 81 mg PO DAILY PRN 02/12/19 [History] Cholecalciferol (Vitamin D3) [Vitamin D] 5,000 unit PO DAILY 02/12/19 [History] Teriparatide [Forteo] 1 injection INJECT DAILY 02/12/19 [History] Ubidecarenone [Co Q-10] 200 mg PO DAILY 02/12/19 [History] Omeprazole 20 mg PO DAILY 05/14/19 [History] Tiotropium Br/Olodaterol HCl [Stiolto Respimat Inhal [place]] 2 puff INH DAILY 08/28 [History] Albuterol/Ipratropium [DuoNeb 3.0-0.5 MG/3 ML] 3 ml NEB Q12H #10 neb 05/17/19 [ Rx] Azithromycin [Zithromax] 250 mg PO DAILY #2 tablet 05/17/19 [Rx] Dextromethorphan/guaiFENesin [Robitussin DM] 10 ml PO Q4H PRN #1 cup 05/17/19 [ Rx] Nicotine [Habitrol] 14 mg TOP DAILY #15 patch 05/17/19 [Rx] guaiFENesin [Mucinex] 600 mg PO BID #10 tab.er 05/17/19 [Rx] methylPREDNISolone [Medrol] 4 mg PO ASDIRECTED #1 dosepk 05/17/19 [Rx] Oxygen Therapy Mode: Nasal Cannula Oxygen Flow Rate (L/min): 1 (1L always, 1.5L with activity) Maintain SpO2% greater than: 90 Patient Handouts: How to Use a Nebulizer, Adult, Chronic Obstructive Pulmonary Disease, [id number], Home Oxygen Use, Adult, Steps to Quit Smoking Forms: ED Department Discharge Referrals: Nuno Phillips MD [Primary Care Provider] - - Discharge Summary/Plan Comment DC Time >30 min.: Yes (45 mins ) - General Info Date of Service: 05/17/19 Admission Dx/Problem (Free Text: Admission Diagnosis/Problem Admission Diagnosis/Problem COPD, Moderate chronic obstructive pulmonary disease Functional Status: Reports: Pain Controlled, Tolerating Diet, Ambulating, Urinating, Incentive Spirometry, Other (acapella ). Denies: New Symptoms - Review of Systems General: Reports: No Symptoms. Denies: Fever, Weakness, Fatigue, Malaise, Chills HEENT: Reports: No Symptoms. Denies: Headaches, Sore Throat Pulmonary: Reports: Shortness of Breath (chronic and improved ), Cough ( improved ), Sputum (improved ). Denies: Wheezing Cardiovascular: Reports: Dyspnea on Exertion. Denies: Chest Pain, Palpitations Gastrointestinal: Reports: No Symptoms. Denies: Abdominal Pain, Constipation, Diarrhea, Nausea, Vomiting Genitourinary: Reports: No Symptoms. Denies: Pain Musculoskeletal: Reports: No Symptoms Skin: Reports: No Symptoms. Denies: Cyanosis Neurological: Reports: No Symptoms. Denies: Pre-Existing Deficit, Difficulty Walking, Gait Disturbance Psychiatric: Reports: No Symptoms - Patient Data Vitals - Most Recent: Last Vital Signs Temp 99.3 F 05/17/19 08:56 Pulse 76 05/17/19 08:56 Resp 18 05/17/19 08:56 BP 130/59 L 05/17/19 09:13 Pulse Ox 93 L 05/17/19 08:56 Weight - Most Recent: 79 lb 11.2 oz I&O - Last 24 hours: Intake & Output 05/16/19 05/17/19 05/17/19 22:59 06:59 14:59 Intake Total 1080 800 Output Total 1400 1500 Balance -320 -700 Lab Results - Last 24 hrs: Laboratory Results - last 24 hr 05/14/19 05/17/19 05/17/19 Range/Units 11:45 05:56 05:56 WBC 14.19 H (3.98-10.04) K/mm3 RBC 4.45 (3.98-5.22) M/mm3 Hgb 13.0 (11.2-15.7) gm/dl Hct 39.4 (34.1-44.9) % MCV 88.5 (79.4-94.8) fl MCH 29.2 (25.6-32.2) pg MCHC 33.0 (32.2-35.5) g/dl RDW Std Deviation 45.9 (36.4-46.3) fL Plt Count 297 (182-369) K/mm3 MPV 9.4 (9.4-12.3) fl Neut % (Auto) 76.3 H (34.0-71.1) % Lymph % (Auto) 14.0 L (19.3-51.7) % [place] % (Auto) 9.4 (4.7-12.5) % Eos % (Auto) 0 L (0.7-5.8) Baso % (Auto) 0.1 (0.1-1.2) % Neut # (Auto) 10.83 H (1.56-6.13) K/mm3 Lymph # (Auto) 1.98 (1.18-3.74) K/mm3 [place] # (Auto) 1.34 H (0.24-0.36) K/mm3 Eos # (Auto) 0.00 L (0.04-0.36) K/mm3 Baso # (Auto) 0.01 (0.01-0.08) K/mm3 Manual Slide Review Abnormal smear Sodium 139 (136-145) mEq/L Potassium 4.4 (3.5-5.1) mEq/L Chloride 101 (98-107) mEq/L Carbon Dioxide 33 H (21-32) mEq/L Anion Gap 9.4 (5-15) BUN 40 H (7-18) mg/dL Creatinine 0.8 (0.55-1.02) mg/dL Est Cr Clr Drug Dosing 38.94 mL/min Estimated GFR (MDRD) > 60 (>60) mL/min BUN/Creatinine Ratio 50.0 H (14-18) Glucose 120 H (80-115) mg/dL Calcium 8.9 (8.5-10.1) mg/dL Magnesium (1.8-2.4) mg/dl C-Reactive Protein (<1.0) mg/dL Adenovirus (PCR) Not detected (Not Detected) B. pertussis DNA (PCR) Not detected (Not Detected) B.parapertussis DNA PCR Not detected (Not Detected) C. pneumoniae DNA (PCR) Not detected (Not Detected) Coronavirus (PCR) Not detected (Not Detected) Human Metapneumovir PCR Not detected (Not Detected) Influenza A (RT-PCR) Not detected (Not Detected) Influenza B (RT-PCR) Not detected (Not Detected) M. pneumoniae (PCR) Not detected (Not Detected) Parainfluen 1,2,3,4 PCR Not detected (Not Detected) RSV (PCR) Not detected (Not Detected) Entero/Rhino (PCR) Not detected (Not Detected) 05/17/19 Range/Units 05:56 WBC (3.98-10.04) K/mm3 RBC (3.98-5.22) M/mm3 Hgb (11.2-15.7) gm/dl Hct (34.1-44.9) % MCV (79.4-94.8) fl MCH (25.6-32.2) pg MCHC (32.2-35.5) g/dl RDW Std Deviation (36.4-46.3) fL Plt Count (182-369) K/mm3 MPV (9.4-12.3) fl Neut % (Auto) (34.0-71.1) % Lymph % (Auto) (19.3-51.7) % [place] % (Auto) (4.7-12.5) % Eos % (Auto) (0.7-5.8) Baso % (Auto) (0.1-1.2) % Neut # (Auto) (1.56-6.13) K/mm3 Lymph # (Auto) (1.18-3.74) K/mm3 [place] # (Auto) (0.24-0.36) K/mm3 Eos # (Auto) (0.04-0.36) K/mm3 Baso # (Auto) (0.01-0.08) K/mm3 Manual Slide Review Sodium (136-145) mEq/L Potassium (3.5-5.1) mEq/L Chloride (98-107) mEq/L Carbon Dioxide (21-32) mEq/L Anion Gap (5-15) BUN (7-18) mg/dL Creatinine (0.55-1.02) mg/dL Est Cr Clr Drug Dosing mL/min Estimated GFR (MDRD) (>60) mL/min BUN/Creatinine Ratio (14-18) Glucose (80-115) mg/dL Calcium (8.5-10.1) mg/dL Magnesium 1.9 (1.8-2.4) mg/dl C-Reactive Protein 0.2 (<1.0) mg/dL Adenovirus (PCR) (Not Detected) B. pertussis DNA (PCR) (Not Detected) B.parapertussis DNA PCR (Not Detected) C. pneumoniae DNA (PCR) (Not Detected) Coronavirus (PCR) (Not Detected) Human Metapneumovir PCR (Not Detected) Influenza A (RT-PCR) (Not Detected) Influenza B (RT-PCR) (Not Detected) M. pneumoniae (PCR) (Not Detected) Parainfluen 1,2,3,4 PCR (Not Detected) RSV (PCR) (Not Detected) Entero/Rhino (PCR) (Not Detected) HARRY Results - Last 24 hrs: Microbiology 05/15/19 09:20 Gram Stain - Final Sputum - Expectorated Sputum Culture - Preliminary Probable Moraxella Catarrhalis Med Orders - Current: Current Medications Acetaminophen (Tylenol) 650 mg PO Q4H PRN PRN Reason: Pain (Mild 1-3)/fever Last Admin: 05/16/19 21:22 Dose: 650 mg Hydrocodone Bitart/Acetaminophen ([place] 325-5 Mg) 1 tab PO Q4H PRN PRN Reason: Pain (moderate 4-6) Last Admin: 05/16/19 02:17 Dose: 1 tab Al Hydroxide/Mg Hydroxide (Mag-Al Plus) 30 ml PO Q4H PRN PRN Reason: Indigestion Last Admin: 05/16/19 22:00 Dose: 30 ml Albuterol/Ipratropium (Duoneb 3.0-0.5 Mg/3 Ml) 3 ml NEB Q4H PRN PRN Reason: Shortness Of Breath/wheezing Last Admin: 05/15/19 14:24 Dose: 3 ml Albuterol/Ipratropium (Duoneb 3.0-0.5 Mg/3 Ml) 3 ml NEB Q12H [facility] Last Admin: 05/17/19 08:16 Dose: 3 ml Amlodipine Besylate (Norvasc) 5 mg PO DAILY [facility] Last Admin: 05/17/19 09:13 Dose: 5 mg Aspirin (Halfprin) 81 mg PO DAILY [facility] Last Admin: 05/17/19 09:13 Dose: 81 mg Azithromycin (Zithromax) 250 mg PO DAILY [facility] Last Admin: 05/17/19 09:13 Dose: 250 mg Bisacodyl (Dulcolax) 5 mg PO DAILY PRN PRN Reason: Constipation Cholecalciferol (Vitamin D3) 5,000 unit PO DAILY [facility] Last Admin: 05/17/19 09:13 Dose: 5,000 unit Docusate Sodium (Colace) 100 mg PO BID PRN PRN Reason: Constipation Last Admin: 05/15/19 20:24 Dose: 100 mg Glycopyrrolate (Seebri Neohaler) 15.6 mcg IH BID [facility] Last Admin: 05/17/19 08:17 Dose: 1 cap Guaifenesin (Mucinex) 600 mg PO BID [facility] Last Admin: 05/17/19 09:13 Dose: 600 mg Guaifenesin/Phenylephrine HCl (Robitussin Dm) 10 ml PO Q4H PRN PRN Reason: Congestion Last Admin: 05/16/19 20:56 Dose: 10 ml Promethazine HCl 6.25 mg/ (Sodium Chloride) 50.25 mls @ 100 mls/hr IV Q6H PRN PRN Reason: Nausea/Vomiting Levothyroxine Sodium (Synthroid) 50 mcg PO ACBREAKFAST [facility] Last Admin: 05/17/19 06:46 Dose: 50 mcg Losartan Potassium (Cozaar) 25 mg PO DAILY [facility] Last Admin: 05/17/19 09:13 Dose: 25 mg Methylprednisolone Sodium Succinate (Solu-Medrol) 40 mg IVPUSH Q12H [facility] Last Admin: 05/17/19 09:13 Dose: 40 mg Ondansetron HCl (Zofran) 4 mg IV Q6H PRN PRN Reason: Nausea/Vomiting Pantoprazole Sodium (Protonix) 40 mg PO ACBREAKFAST [facility] Last Admin: 05/17/19 06:46 Dose: 40 mg Polyethylene Glycol (Miralax) 17 gm PO DAILY PRN PRN Reason: Constipation Senna/Docusate Sodium (Senna Plus) 1 tab PO BID PRN PRN Reason: Constipation Simvastatin (Zocor) 40 mg PO BEDTIME DAVIE Last Admin: 05/16/19 20:04 Dose: 40 mg Sodium Chloride (Saline Flush) 10 ml FLUSH ASDIRECTED PRN PRN Reason: Keep Vein Open Temazepam (Restoril) 7.5 mg PO BEDTIME PRN PRN Reason: Sleep Discontinued Medications Al Hydroxide/Mg Hydroxide (Mag-Al Plus) 30 ml PO ONETIME ONE Stop: 05/16/19 04:15 Last Admin: 05/16/19 04:15 Dose: 30 ml Albuterol/Ipratropium (Duoneb 3.0-0.5 Mg/3 Ml) 3 ml NEB ONETIME ONE Stop: 05/14/19 06:31 Last Admin: 05/14/19 06:48 Dose: 3 ml Albuterol/Ipratropium (Duoneb 3.0-0.5 Mg/3 Ml) 3 ml NEB ONETIME ONE Stop: 05/14/19 09:04 Last Admin: 05/14/19 09:13 Dose: 3 ml Albuterol/Ipratropium (Duoneb 3.0-0.5 Mg/3 Ml) 3 ml NEB [id number] DAVIE Albuterol/Ipratropium (Duoneb 3.0-0.5 Mg/3 Ml) 3 ml NEB [id number] DAVIE Magnesium Sulfate/Dextrose 1 (gm/ Premix) 100 mls @ 100 mls/hr IV ONETIME ONE Stop: 05/14/19 12:39 Last Admin: 05/14/19 13:37 Dose: 100 mls/hr Magnesium Oxide (Magnesium Oxide) 400 mg PO ONETIME ONE Stop: 05/16/19 11:46 Last Admin: 05/16/19 14:39 Dose: Not Given Magnesium Oxide (Magnesium Oxide) 400 mg PO ONETIME ONE Stop: 05/16/19 14:31 Last Admin: 05/16/19 14:35 Dose: 400 mg Methylprednisolone Sodium Succinate (Solu-Medrol) 125 mg IVPUSH ONETIME ONE Stop: 05/14/19 06:36 Last Admin: 05/14/19 07:09 Dose: 125 mg Methylprednisolone Sodium Succinate (Solu-Medrol) 60 mg IVPUSH Q8H [facility] Last Admin: 05/16/19 08:54 Dose: 60 mg Morphine Sulfate (Morphine) 0.5 mg IVPUSH Q2H PRN PRN Reason: Dyspnea Stop: 05/15/19 11:33 Non-Formulary Medication (Pravastatin [Pravachol]) 80 mg PO DAILY [facility] Non-Formulary Medication (Teriparatide [Forteo]) 1 injection INJECT DAILY [facility] Non-Formulary Medication (Tiotropium Br/Olodaterol Hcl [Stiolto Respimat Inhal [place]]) 2 puff INH DAILY [facility] Non-Formulary Medication (Ubidecarenone [Co Q-10]) 200 mg PO DAILY [facility] Evaluate Potassium (Level Daily) 1 each .XX DAILY [facility] Potassium Chloride (Klor-Con M20) 60 meq PO ONETIME ONE Stop: 05/14/19 11:39 Last Admin: 05/14/19 13:37 Dose: 60 meq - Exam Quality Assessment: Reports: DVT Prophylaxis General: Reports: Alert, Oriented, Cooperative HEENT: Reports: Pupils Equal, Pupils Reactive, Mucous Membr. Moist/[place] Neck: Reports: Supple Lungs: Reports: Normal Respiratory Effort, Decreased Breath Sounds. Denies: Rhonchi, Wheezing Cardiovascular: Reports: Regular Rate, Regular Rhythm GI/Abdominal Exam: Normal Bowel Sounds, Soft, Non-Tender, No Distention, No Abnormal Bruit (Female) Exam: Deferred Rectal (Female) Exam: Deferred Back Exam: Reports: Normal Inspection, Full Range of Motion Extremities: Normal Inspection, Normal Range of Motion, Non-Tender, No Pedal Edema, Normal Capillary Refill Skin: Reports: Warm, Dry, Intact Neurological: Reports: No New Focal Deficit Psy/Mental Status: Reports: Alert, Normal Affect, Normal Mood
[2019-05-17 14:10] VITALS: BP 119/69; PULSE 78
== END 2019-05-17 15:05 | disposition home or self-care (01) | DRG 192 ==
LOC: JD.ED 06:04 → JD.MS 10:46
PROVIDERS: ADMIT Internal Medicine; ATTEND Internal Medicine
DX: J44.1 Chronic obstructive pulmonary disease with (acute) exacerbation (principal); Z66 Do not resuscitate; F17.210 Nicotine dependence, cigarettes, uncomplicated; E87.6 Hypokalemia; E83.42 Hypomagnesemia; I10 Essential (primary) hypertension; F17.200 Nicotine dependence, unspecified, uncomplicated; Z90.710 Acquired absence of both cervix and uterus; E78.5 Hyperlipidemia, unspecified; G40.909 Epilepsy, unspecified, not intractable, without status epilepticus; Z79.899 Other long term (current) drug therapy; E03.9 Hypothyroidism, unspecified; K21.9 Gastro-esophageal reflux disease without esophagitis; E78.00 Pure hypercholesterolemia, unspecified; I07.1 Rheumatic tricuspid insufficiency; M81.0 Age-related osteoporosis without current pathological fracture; R73.9 Hyperglycemia, unspecified; B96.89 Other specified bacterial agents as the cause of diseases classified elsewhere; R09.02 Hypoxemia; Z71.6 Tobacco abuse counseling; Z79.890 Hormone replacement therapy; Z79.82 Long term (current) use of aspirin
CPT/HCPCS: 36415; 36600; 71045; 80053; 82803; 84484; 85007; 85027; 86140; 87804 ×2; 93005; 94640 ×2; 96374; 99285; J2930; 80048; 83735; 85025; 87070; 87077; 87181; 87184; 87205; 87486; 87581; 87632; 87798; 94667; 94668; 94760; 94761; 97116-GP; 97162-GP; 97165-GO; 99222; 99232; 99239; 99284; A9270-GY; J2920; J3475; J7620-GY

== ENCOUNTER 2022-08-01 12:28 | Inpatient (IN) | payer MEDICARE, BC ==
[2022-08-01] MEDS ORDERED: Sodium Chloride 0.9% 10 ML Syringe FLUSH PRN ×3 (12:52→15:36)
[2022-08-01] MEDS ORDERED: Aspirin 81 MG Tab.Chew PO ONE (12:52)
[2022-08-01] MEDS ORDERED: methylPREDNISolone Sodium Succinate 125 MG/2 ML SDV IVPUSH ONE (12:55)
[2022-08-01] MEDS ORDERED: Levalbuterol HCl 1.25 MG/3 ML Neb NEB ONE (12:57)
[2022-08-01] MEDS ORDERED: Diltiazem 25 MG/5 ML SDV IVPUSH ONE (13:04)
[2022-08-01] MEDS: Sodium Chloride 0.9% 1,000 ML IV SCH ×2 (13:07→20:39)
[2022-08-01] MEDS ORDERED: Diltiazem 125 MG in Sodium Chloride 0.9% 100 ML IV SCH ×2 (13:15→16:00)
[2022-08-01 14:07] LABS: CORONAVIRUS COVID-19 NAA NEGATIVE (NEGATIVE)
[2022-08-01] MEDS ORDERED: cefTRIAXone 1 GM in Sodium Chloride 0.9% 100 ML IV ONE (14:31)
[2022-08-01] MEDS ORDERED: Iopamidol 755 Mg/ML 100 ML Bottle IVPUSH ONE (14:34)
[2022-08-01] MEDS ORDERED: Sodium Chloride 0.9% 100 ML IV SCH (14:45)
[2022-08-01] MEDS ORDERED: Diltiazem IR 60 MG Tab PO ONE (15:34)
[2022-08-01] MEDS ORDERED: Docusate Sodium 100 MG Cap PO PRN (15:56)
[2022-08-01] MEDS ORDERED: Ondansetron 4 MG Tab.DIS PO PRN (15:56)
[2022-08-01] MEDS ORDERED: Ondansetron 4 MG/2 ML SDV IV PRN (15:56)
[2022-08-01] MEDS ORDERED: Sodium Chloride 0.9% 1,000 ML IV SCH (16:00)
[2022-08-01] MEDS: Heparin Sodium 5,000 Units/ML Vial SUBCUT SCH (16:34)
[2022-08-01] MEDS: Piperacillin/Tazobactam 4.5 GM in Sodium Chloride 0.9% 100 ML IV SCH (16:57)
[2022-08-01] MEDS ORDERED: Diltiazem IR 60 MG Tab PO SCH (18:00)
[2022-08-01] MEDS: Albuterol/Ipratropium 3.0-0.5 MG/3 ML Neb Soln NEB PRN ×2 (18:01→21:56)
[2022-08-01] MEDS: guaiFENesin/Dextromethorphan 100-10 MG/5 ML Soln 5 ML Cup PO PRN (22:24)
[2022-08-02] MEDS ORDERED: Diltiazem IR 60 MG Tab PO SCH
[2022-08-02] MEDS: Piperacillin/Tazobactam 4.5 GM in Sodium Chloride 0.9% 100 ML IV SCH ×4 (00:10→15:56)
[2022-08-02] MEDS: Heparin Sodium 5,000 Units/ML Vial SUBCUT SCH ×3 (00:24→15:54)
[2022-08-02] MEDS: Albuterol/Ipratropium 3.0-0.5 MG/3 ML Neb Soln NEB PRN ×4 (04:24→20:26)
[2022-08-02] MEDS: Sodium Chloride 0.9% 1,000 ML IV SCH (04:59)
[2022-08-02] MEDS ORDERED: Potassium Chloride 20 MEQ Tab.ER PO ONE (06:21)
[2022-08-02] MEDS: Levofloxacin/Dextrose 5%-Water 750 MG in Premix Bag 1 BAG IV SCH (06:50)
[2022-08-02] MEDS: Diltiazem IR 60 MG Tab PO SCH ×2 (07:39→15:55)
[2022-08-02] MEDS ORDERED: Aspirin 81 MG Tab.EC PO PRN (09:25)
[2022-08-02] MEDS: guaiFENesin 600 MG Tab.ER PO SCH (20:13)
[2022-08-02] MEDS: guaiFENesin/Dextromethorphan 100-10 MG/5 ML Soln 5 ML Cup PO PRN (20:16)
[2022-08-03] MEDS: Piperacillin/Tazobactam 4.5 GM in Sodium Chloride 0.9% 100 ML IV SCH ×5 (00:22→23:39)
[2022-08-03] MEDS: Diltiazem IR 60 MG Tab PO SCH ×5 (00:26→23:38)
[2022-08-03] MEDS: Heparin Sodium 5,000 Units/ML Vial SUBCUT SCH ×5 (00:34→23:39)
[2022-08-03] MEDS: Levothyroxine 50 MCG Tab PO SCH (06:56)
[2022-08-03] MEDS ORDERED: Potassium Chloride 20 MEQ Tab.ER PO ONE (07:00)
[2022-08-03] MEDS: Albuterol/Ipratropium 3.0-0.5 MG/3 ML Neb Soln NEB PRN (08:37)
[2022-08-03] MEDS: guaiFENesin 600 MG Tab.ER PO SCH ×2 (08:54→21:17)
[2022-08-03] MEDS: Omeprazole 20 MG Cap.CR PO SCH (08:54)
[2022-08-03] MEDS: atorvaSTATin 40 MG Tab PO SCH (08:54)
[2022-08-04] MEDS: Acetaminophen 325 MG Tab PO PRN (01:59)
[2022-08-04] MEDS: Levofloxacin/Dextrose 5%-Water 750 MG in Premix Bag 1 BAG IV SCH (07:04)
[2022-08-04] MEDS: Levothyroxine 50 MCG Tab PO SCH (07:04)
[2022-08-04] MEDS: Omeprazole 20 MG Cap.CR PO SCH (09:08)
[2022-08-04] MEDS: atorvaSTATin 40 MG Tab PO SCH (09:08)
[2022-08-04] MEDS: Heparin Sodium 5,000 Units/ML Vial SUBCUT SCH ×3 (09:08→23:41)
[2022-08-04] MEDS: guaiFENesin 600 MG Tab.ER PO SCH ×2 (09:08→20:48)
[2022-08-04] MEDS: Potassium Chloride 20 MEQ Tab.ER PO SCH ×2 (09:08→20:48)
[2022-08-04] MEDS: Famotidine 20 MG Tab PO SCH (09:08)
[2022-08-04] MEDS: Piperacillin/Tazobactam 4.5 GM in Sodium Chloride 0.9% 100 ML IV SCH (09:09)
[2022-08-04] MEDS: Diltiazem IR 60 MG Tab PO SCH ×3 (09:28→23:41)
[2022-08-04] MEDS ORDERED: Albuterol/Ipratropium 3.0-0.5 MG/3 ML Neb Soln NEB SCH (10:00)
[2022-08-04] MEDS: Albuterol/Ipratropium 3.0-0.5 MG/3 ML Neb Soln NEB PRN (16:02)
[2022-08-05] MEDS: Acetaminophen 325 MG Tab PO PRN ×4 (02:22→23:44)
[2022-08-05] MEDS: Levothyroxine 50 MCG Tab PO SCH (06:43)
[2022-08-05] MEDS: Amoxicillin/Clavulanate K 875-125 MG Tab PO SCH ×2 (08:11→20:37)
[2022-08-05] MEDS: atorvaSTATin 40 MG Tab PO SCH (08:12)
[2022-08-05] MEDS: guaiFENesin 600 MG Tab.ER PO SCH ×2 (08:12→20:37)
[2022-08-05] MEDS: Omeprazole 20 MG Cap.CR PO SCH (08:12)
[2022-08-05] MEDS: Famotidine 20 MG Tab PO SCH (08:12)
[2022-08-05] MEDS: Potassium Chloride 20 MEQ Tab.ER PO SCH (08:13)
[2022-08-05] MEDS: Heparin Sodium 5,000 Units/ML Vial SUBCUT SCH ×3 (08:14→23:43)
[2022-08-05] MEDS: Diltiazem 180 MG Cap.CD PO SCH (08:14)
[2022-08-05] MEDS ORDERED: Albuterol 6.7 GM Inhaler INH PRN (10:00)
[2022-08-05] MEDS: Albuterol/Ipratropium 3.0-0.5 MG/3 ML Neb Soln NEB PRN ×2 (10:26→15:37)
[2022-08-05] MEDS: Tiotropium BR/Olodaterol HCL 4 GM Inhalation Spray 2.5mcg/1 dose; 10 doses INH SCH (10:27)
[2022-08-06] MEDS: Levothyroxine 50 MCG Tab PO SCH (06:20)
[2022-08-06] MEDS ORDERED: Levofloxacin 750 MG Tab PO SCH (07:00)
[2022-08-06] MEDS: Tiotropium BR/Olodaterol HCL 4 GM Inhalation Spray 2.5mcg/1 dose; 10 doses INH SCH (09:27)
[2022-08-06] MEDS: Famotidine 20 MG Tab PO SCH (10:01)
[2022-08-06] MEDS: guaiFENesin 600 MG Tab.ER PO SCH (10:02)
[2022-08-06] MEDS: Diltiazem 180 MG Cap.CD PO SCH (10:02)
[2022-08-06] MEDS: Omeprazole 20 MG Cap.CR PO SCH (10:02)
[2022-08-06] MEDS: Amoxicillin/Clavulanate K 875-125 MG Tab PO SCH (10:02)
[2022-08-06] MEDS: atorvaSTATin 40 MG Tab PO SCH (10:02)
[2022-08-06] MEDS: Heparin Sodium 5,000 Units/ML Vial SUBCUT SCH (10:03)
[2022-08-06] MEDS: Acetaminophen 325 MG Tab PO PRN ×2 (10:04→14:37)
[2022-08-06 17:19] VITALS: BP 120/65; PULSE 89
== END 2022-08-06 16:10 | disposition home or self-care (01) | DRG 871 ==
LOC: JD.ED 12:28 → JD.ICU 15:37 → JD.MS 08-02 23:16
PROVIDERS: ADMIT Hospitalist; ATTEND Hospitalist
DX: A40.3 Sepsis due to Streptococcus pneumoniae (principal); A41.9 Sepsis, unspecified organism; J18.9 Pneumonia, unspecified organism; J90 Pleural effusion, not elsewhere classified; E86.0 Dehydration; J96.21 Acute and chronic respiratory failure with hypoxia; J44.9 Chronic obstructive pulmonary disease, unspecified; F17.210 Nicotine dependence, cigarettes, uncomplicated; Z99.81 Dependence on supplemental oxygen; E87.1 Hypo-osmolality and hyponatremia; J44.0 Chronic obstructive pulmonary disease with (acute) lower respiratory infection; E87.8 Other disorders of electrolyte and fluid balance, not elsewhere classified; Z20.822 Contact with and (suspected) exposure to COVID-19; Z66 Do not resuscitate; I08.3 Combined rheumatic disorders of mitral, aortic and tricuspid valves; I48.91 Unspecified atrial fibrillation; F17.219 Nicotine dependence, cigarettes, with unspecified nicotine-induced disorders; E87.6 Hypokalemia; R33.9 Retention of urine, unspecified; E78.00 Pure hypercholesterolemia, unspecified; I10 Essential (primary) hypertension; K21.9 Gastro-esophageal reflux disease without esophagitis; R56.9 Unspecified convulsions; E03.9 Hypothyroidism, unspecified; Z98.890 Other specified postprocedural states; Z79.82 Long term (current) use of aspirin; Z79.890 Hormone replacement therapy; Z90.710 Acquired absence of both cervix and uterus; Z79.899 Other long term (current) drug therapy
CPT/HCPCS: 0241U; 36415; 51701; 51798; 71045; 71046; 71275; 80048; 80053; 83605; 83735; 84443; 84484; 85025; 86140; 87040; 87070; 87077; 87154; 87186; 87205; 87641; 93005; 93307; 94640; 94667; 94668; 94761; 96365; 96366; 96368; 96375; 96376; 97116; 97161; 97166; 97530; 97535; 99285; 93010; 99223; 99233; 99239; 99284; A9270-GY; J0696; J1644; J1956; J2543; J2930; J3490; J7030; J7612-GY; J7620-GY; Q9967

== ENCOUNTER 2023-03-26 06:48 | Day surgery (SDC) | payer MEDICARE, BC ==
[2023-03-26] MEDS ORDERED: Ondansetron 4 MG/2 ML SDV IVPUSH PRN (07:23)
[2023-03-26] MEDS ORDERED: Propofol 200 MG/20 ML SDV ONE ×2 (07:30→08:04)
[2023-03-26] MEDS ORDERED: Lidocaine 1% 2 ML ONE (07:31)
[2023-03-26] MEDS ORDERED: Lactated Ringers 1,000 ML IV SCH (07:45)
[2023-03-26 10:18] VITALS: BP 130/60; PULSE 72
== END 2023-03-26 09:20 | disposition home or self-care (01) ==
LOC: JD.SDS 06:48
PROVIDERS: ATTEND Surgery
DX: K63.5 Polyp of colon (principal); K62.1 Rectal polyp; Q43.8 Other specified congenital malformations of intestine; K64.8 Other hemorrhoids; I11.0 Hypertensive heart disease with heart failure; I50.9 Heart failure, unspecified; E78.00 Pure hypercholesterolemia, unspecified; J44.9 Chronic obstructive pulmonary disease, unspecified; I48.91 Unspecified atrial fibrillation; K21.9 Gastro-esophageal reflux disease without esophagitis; E03.9 Hypothyroidism, unspecified; F17.210 Nicotine dependence, cigarettes, uncomplicated; Z79.01 Long term (current) use of anticoagulants; Z79.82 Long term (current) use of aspirin; Z79.890 Hormone replacement therapy; Z79.899 Other long term (current) drug therapy
CPT/HCPCS: 45380; 45385; J2704; J7120; J3490